=== PATIENT | male | born 1995 | race Caucasian/White ===

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

== ENCOUNTER 2017-02-08 18:21 | Emergency (ER) | payer BC ==
[2017-02-09] MEDS ORDERED: NS 0.9% 1000 ML* 2,000 ML IV ONE (00:25)
[2017-02-09] MEDS ORDERED: Metoclopramide IV* 5 MG/ML 2 ML VIAL IV SLOW PU ONE (00:27)
[2017-02-09 01:17] LABS: Hematocrit 43 % (42-52); Hemoglobin 14.8 g/dl (14.0-18.0); Mean Corpuscular HGB Conc 35 g/dl (31-36); Mean Corpuscular Hemoglobin 31 pg (27-31); Mean Corpuscular Volume 90 fL (80-94); Mean Platelet Volume 8 um3 (7.4-10.4); Red Cell Distribution Width 13 % (10.5-15); White Blood Count 11.4 10^3/ul (3.5-10.8)
[2017-02-09 01:31] LABS: Albumin 3.9 g/dL (3.2-5.2); BUN/Creatinine Ratio 9.7 (8-20); C Reactive Protein 2.52 mg/L (< 5.00); Calcium 9.4 mg/dL (8.6-10.3); EGFR African American 119.6 (>60); Globulin 2.9 g/dL (2-4); Potassium 3.8 mmol/L (3.5-5.0); Total Bilirubin 0.3 mg/dL (0.2-1.0); Total Protein 6.8 g/dL (6.4-8.9)
[2017-02-09] MEDS ORDERED: Iohexol 300* (CONTRAST) 10 ML SDV IV ONE (03:38)
[2017-02-09] MEDS ORDERED: LORazepam INJ* 2 MG/ML 1 ML VIAL IV ONE (04:11)
[2017-02-09 04:47] LABS: Urine Bilirubin Negative (Negative); Urine Glucose Negative (Negative); Urine Nitrite Negative (Negative)
[2017-02-09] MEDS ORDERED: HYDROcodone/ACETAMIN 5-325 MG* 1 TAB PO ONE (07:42)
--- NOTE | 2017-02-09 07:42 | ED ---
Eugene Gongora Rebecca, scribed for Tacos Mojica MD on 02/09/17 at 0010 . Back Pain - HPI Summary HPI Summary: Pt is a 21 y/o M who presents to ED c/o bilateral flank pain and dysuria. Sx began a few days ago, worsening gradually since yesterday. Pain is worse on the R than L. Currently, pain is moderate, ranked 9/10. Sx aggravated by movement, alleviated by nothing. Additionally c/o dark urine and suprapubic, penile and testicular pain (worse on the right) when he urinates. Notes that he has been experiencing epigastric pain and nausea after eating for the last 4 months. Is not taking any anti-emetics or antacids and is awaiting an endoscopy. Pt experienced a seizure while in a chair [employer] CHECK[employer] secondary to pain. Denies fever, chills. States that he typically has about 1 seizure every week, though at initial onset at age 16 he was having 3-4 every day. No PMHx kidney stones. PSHx appy. - History of Current Complaint Chief Complaint: EDFlankPain Stated Complaint: PAIN WHEN URINATING AND IN LOWER BACK Time Seen by Provider: 02/09/17 00:02 Hx Obtained From: Patient Onset/Duration: Lasting Days, Still Present, Worse Since - Yesterday Onset/Duration: Still Present Back Pain Location: Is Discrete @ - Bilateral flank pain Severity Currently: Severe Pain Intensity: 9 Pain Scale Used: 0-10 Numeric Aggravating Symptom(s): Movement Alleviating Symptom(s): Nothing Associated Signs And Symptoms: Positive: Abdominal Pain - Suprapubic (when urinating), Other - Penile and testicular pain. Negative: Fever - Allergies/Home Medications Allergies/Adverse Reactions: Allergies Allergy/AdvReac Type Severity Reaction Status Date / Time Albuterol Allergy Severe Airway Verified 12/31/16 09:23 Obstruction Latex Allergy Hives/Diff. Verified 12/31/16 09:23 Breathing/I tching BASAL Allergy Severe TONGUE Uncoded 12/31/16 09:23 SWELLING, TROUBLE BREATHING DOGS Allergy Severe ITCHY Uncoded 12/31/16 09:23 EYES, SNEEZING CHACHO Allergy Severe TONGUE Uncoded 12/31/16 09:23 SWELLING, DYSPNEA PEACHES Allergy Severe VOMITING, Uncoded 12/31/16 09:23 TONGUE SWELLING, DIFFICULTY BREATHING SALMON Allergy Severe TONGUE Uncoded 12/31/16 09:23 SWELLING WEEDS Allergy Severe DYSPNEA Uncoded 12/31/16 09:23 CATS Allergy ITCHY Uncoded 12/31/16 09:23 EYES, SNEEZING PMH/Surg Hx/FS Hx/Imm Hx Endocrine/Hematology History: Denies: Hx Anticoagulant Therapy, Hx Diabetes, Hx Thyroid Disease Cardiovascular History: Denies: Hx Congestive Heart Failure, Hx Deep Vein Thrombosis, Hx Hypertension , Hx Myocardial Infarction, Hx Pacemaker/ICD Respiratory History: Reports: Hx Asthma - EXERCISE INDUCED Denies: Hx Chronic Obstructive Pulmonary Disease (COPD), Hx Lung Cancer, Hx Pneumonia, Hx Pulmonary Embolism GI History: Reports: Other GI Disorders - appendectomy Denies: Hx Gall Bladder Disease, Hx Gastrointestinal Bleed, Hx Ulcer, Hx Urosepsis History: Denies: Hx Kidney Stones, Hx Renal Disease Musculoskeletal History: Reports: Other Musculoskeletal History - Hypermobility arthralgia Syndrome Sensory History: Reports: Other Sensory Impairments - 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 Opthamlomology History: Reports: Other Sensory Impairments - 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 Neurological History: 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, pseudoseizures Denies: Hx Dementia, Hx Migraine, Hx Transient Ischemic Attacks (TIA) Psychiatric History: Reports: Hx Anxiety, Hx Depression Denies: Hx Eating Disorder, Hx Schizophrenia, Hx Bipolar Disorder, Hx of Violent Episodes Against Others - Surgical History Surgery Procedure, Year, and Place: ORAL SURGERY, EYE SURGERY FOR NYSTAGMUS Infectious Disease History: No Infectious Disease History: Denies: Traveled Outside the [place] in Last 30 Days - Family History Known Family History: Positive: Cardiac Disease, Diabetes Negative: Renal Disease - Social History Alcohol Use: None Substance Use Type: Reports: Marijuana Substance Use Comment - Amount & Last Used: past hx of Oxycodone abuse- clean now Smoking Status (MU): Former Smoker Review of Systems Negative: Fever, Chills Positive: Abdominal Pain - suprapubic pain when urinating, Nausea - after eating - 4 months Positive: dysuria, pain - Bilateral flank (R>L); penile and testicular when urinating, other - dark urine All Other Systems Reviewed And Are Negative: Yes Physical Exam - Summary Physical Exam Summary: General: well-appearing, mild to moderate pain distress Skin: warm, color reflects adequate perfusion, dry Head: normal Eyes: EOMI, ROSALIE, saccades ENT: normal, oral mucosa moist Neck: supple, nontender Respiratory: CTA, breath sounds present Cardiovascular: RRR Abdomen: soft, diffusely tender with pain increasing when he moves his legs Bowel: present Musculoskeletal: strength/ROM intact, tender in the midline of the back and both flanks Neurological: normal, sensory/motor intact, A&O x3 Psychological: affect/mood appropriate Triage Information Reviewed: Yes Vital Signs On Initial Exam: Initial Vitals Temp Pulse Resp BP Pulse Ox 98.4 F 92 20 129/76 97 02/08/17 18:32 02/08/17 18:32 02/08/17 18:32 02/08/17 18:32 02/08/17 18:32 Vital Signs Reviewed: Yes - [place] Coma Scale Coma Scale Total: 15 Diagnostics - Vital Signs Vital Signs Temp Pulse Resp BP Pulse Ox 02/08/17 23:40 94 96 02/08/17 23:37 130/69 02/08/17 22:35 98.1 F 78 16 131/72 99 02/08/17 19:37 97.9 F 100 16 126/68 98 02/08/17 18:32 98.4 F 92 20 129/76 97 - Laboratory Lab Results: Lab Results 02/09/17 02/09/17 02/09/17 Range/Units 01:00 01:00 01:00 WBC 11.4 H (3.5-10.8) 10^3/ul RBC 4.80 (4.0-5.4) 10^6/ul Hgb 14.8 (14.0-18.0) g/dl Hct 43 (42-52) % MCV 90 (80-94) fL MCH 31 (27-31) pg MCHC 35 (31-36) g/dl RDW 13 (10.5-15) % Plt Count 229 (150-450) 10^3/ul MPV 8 (7.4-10.4) um3 Neut % (Auto) 51.8 (38-83) % Lymph % (Auto) 36.2 (25-47) % Bru[place] % (Auto) 8.9 (1-9) % Eos % (Auto) 2.7 (0-6) % Baso % (Auto) 0.4 (0-2) % Absolute Neuts (auto) 5.9 (1.5-7.7) 10^3/ul Absolute Lymphs (auto) 4.1 (1.0-4.8) 10^3/ul Absolute Monos (auto) 1.0 H (0-0.8) 10^3/ul Absolute Eos (auto) 0.3 (0-0.6) 10^3/ul Absolute Basos (auto) 0.1 (0-0.2) 10^3/ul Absolute Nucleated RBC 0.01 10^3/ul Nucleated RBC % 0.1 INR (Anticoag Therapy) 0.93 (0.89-1.11) APTT 29.5 (26.0-36.3) seconds Sodium 139 (133-145) mmol/L Potassium 3.8 (3.5-5.0) mmol/L Chloride 104 (101-111) mmol/L Carbon Dioxide 28 (22-32) mmol/L Anion Gap 7 (2-11) mmol/L BUN 10 (6-24) mg/dL Creatinine 1.03 (0.67-1.17) mg/dL Est GFR ( Amer) 119.6 (>60) Est GFR (Non-Af Amer) 93.0 (>60) BUN/Creatinine Ratio 9.7 (8-20) Glucose 93 (70-100) mg/dL Lactic Acid (0.5-2.0) mmol/L Calcium 9.4 (8.6-10.3) mg/dL Total Bilirubin 0.30 (0.2-1.0) mg/dL AST 24 (13-39) U/L ALT 30 (7-52) U/L Alkaline Phosphatase 88 (34-104) U/L C-Reactive Protein 2.52 (< 5.00) mg/L Total Protein 6.8 (6.4-8.9) g/dL Albumin 3.9 (3.2-5.2) g/dL Globulin 2.9 (2-4) g/dL Albumin/Globulin Ratio 1.3 (1-3) Urine Color Urine Appearance Urine pH (5-9) Ur Specific [place] (1.010-1.030) Urine Protein (Negative) Urine Ketones (Negative) Urine Blood (Negative) Urine Nitrate (Negative) Urine Bilirubin (Negative) Urine Urobilinogen (Negative) Ur Leukocyte Esterase (Negative) Urine Glucose (Negative) 02/09/17 02/09/17 Range/Units 01:00 04:10 WBC (3.5-10.8) 10^3/ul RBC (4.0-5.4) 10^6/ul Hgb (14.0-18.0) g/dl Hct (42-52) % MCV (80-94) fL MCH (27-31) pg MCHC (31-36) g/dl RDW (10.5-15) % Plt Count (150-450) 10^3/ul MPV (7.4-10.4) um3 Neut % (Auto) (38-83) % Lymph % (Auto) (25-47) % Bru[place] % (Auto) (1-9) % Eos % (Auto) (0-6) % Baso % (Auto) (0-2) % Absolute Neuts (auto) (1.5-7.7) 10^3/ul Absolute Lymphs (auto) (1.0-4.8) 10^3/ul Absolute Monos (auto) (0-0.8) 10^3/ul Absolute Eos (auto) (0-0.6) 10^3/ul Absolute Basos (auto) (0-0.2) 10^3/ul Absolute Nucleated RBC 10^3/ul Nucleated RBC % INR (Anticoag Therapy) (0.89-1.11) APTT (26.0-36.3) seconds Sodium (133-145) mmol/L Potassium (3.5-5.0) mmol/L Chloride (101-111) mmol/L Carbon Dioxide (22-32) mmol/L Anion Gap (2-11) mmol/L BUN (6-24) mg/dL Creatinine (0.67-1.17) mg/dL Est GFR ( Amer) (>60) Est GFR (Non-Af Amer) (>60) BUN/Creatinine Ratio (8-20) Glucose (70-100) mg/dL Lactic Acid 1.5 (0.5-2.0) mmol/L Calcium (8.6-10.3) mg/dL Total Bilirubin (0.2-1.0) mg/dL AST (13-39) U/L ALT (7-52) U/L Alkaline Phosphatase (34-104) U/L C-Reactive Protein (< 5.00) mg/L Total Protein (6.4-8.9) g/dL Albumin (3.2-5.2) g/dL Globulin (2-4) g/dL Albumin/Globulin Ratio (1-3) Urine Color Straw Urine Appearance Clear Urine pH 6.0 (5-9) Ur Specific [place] 1.008 L (1.010-1.030) Urine Protein Negative (Negative) Urine Ketones Negative (Negative) Urine Blood Negative (Negative) Urine Nitrate Negative (Negative) Urine Bilirubin Negative (Negative) Urine Urobilinogen Negative (Negative) Ur Leukocyte Esterase Negative (Negative) Urine Glucose Negative (Negative) Result Diagrams: 02/09/17 01:00 02/09/17 01:00 Lab Statement: Any lab studies that have been ordered have been reviewed, and results considered in the medical decision making process. - CT CT Abd/Pel CT Interpretation Completed By: Radiologist - Pending radiology interpretation. See [email or web address] for results. CT L-spine CT Interpretation: No Acute Changes - No acute fracture or malalignment. Small posterior disc bulges L4-L5 and L5-S1. MO substantial canal or neural foraminal stenosis. ED physician reviewed radiology report and agrees. CT Interpretation Completed By: Radiologist Back Pain Course/Dx - Course Assessment/Plan: Patient medications reviewed. BP noted and advised to f/u with PCP. DISCUSSED RESULTS WITH PATIENT/PARENTS. MOST PROBABLE SOURCE OF PAIN IS THE LOW BACK. PATIENT ALSO HAS HAD EPIGASTRIC PAIN; WILL RX OMEPRAZOLE. F/U PMD. DISCUSSED REEVAL FOR ANY WORSENING OF CONDITION. NO CRITICAL CARE TIME. - Diagnoses Provider Diagnoses: Back pain, Flank pain, Abdominal pain Discharge - Discharge Plan Condition: Stable Disposition: HOME Prescriptions: HYDROcodone/ACETAMIN 5-325 MG* [[place] 5-325 TAB*] 1 tab PO Q4H PRN #20 tab MDD 6 PRN Reason: Pain Omeprazole CAP* [Prilosec CAP* 20 MG] 20 mg PO BID #30 cap. Patient Education Materials: Abdominal Pain (ED), Back Pain (ED), Flank Pain ( ED) Referrals: Percy Londono MD [Primary Care Provider] - Additional Instructions: FOLLOW UP WITH YOUR DOCTOR. RETURN TO THE EMERGENCY DEPARTMENT FOR ANY WORSENING OF YOUR CONDITION; PAIN, WEAKNESS, FEVER, YOU FEEL ILL OR QUESTIONS OR CONCERNS. The documentation as recorded by the Eugene luna Rebecca accurately reflects the service I personally performed and the decisions made by me, Tacos Mojica MD.
--- NOTE | 2017-02-09 07:55 | RAD ---
INDICATION: Low back pain, bilateral flank pain and diffuse abdominal pain. COMPARISON: Comparison is made with a prior CT of the abdomen and pelvis from January 12, 2016. TECHNIQUE: A CT scan of the abdomen and pelvis was performed with intravenous and oral contrast following intravenous injection of 100 ml of Omnipaque 300 nonionic contrast. Contiguous axial sections were obtained from the lung bases through the symphysis pubis. Images were reconstructed in the coronal and sagittal planes. FINDINGS: The lung bases are clear. No pleural effusion is present. The liver and spleen are within normal limits in size without significant focal abnormality. No calcified gallstones are seen. The pancreas appears to be within normal limits in size. The kidneys and adrenal glands are normal in size. No hydronephrosis is seen. No significant focal renal abnormality is seen. The aorta is normal in caliber and demonstrates homogeneous contrast opacification. No significant enlarged retroperitoneal lymph nodes are seen. The stomach, small and large bowel appear nondistended. Postsurgical changes are noted adjacent to the cecum. The appendix is not visualized. There is no evidence for diverticulitis or colitis. There is a small periumbilical hernia containing fat. No free intraperitoneal air or fluid is seen. There is a mild lumbar scoliosis. There is a sclerotic lesion in the proximal right femur which is unchanged from the prior study most consistent with a benign bone island. No other focal osseous abnormalities are seen. IMPRESSION: NO EVIDENCE FOR ACUTE FINDING OR CAUSE FOR THE PATIENT'S ABDOMINAL PAIN IS SEEN.
--- NOTE | 2017-02-09 07:56 | RAD ---
HISTORY: Bilateral flank pain, painful urination COMPARISONS: None TECHNIQUE: Multiple contiguous axial CT scans were obtained of the lumbar spine with intravenous contrast, with coronal and sagittal multiplanar reformations. FINDINGS: SPINAL CANAL: Evaluation of the central canal is limited on CT technique; however, there is no obvious canalicular mass or epidural hemorrhage. ALIGNMENT: The alignment is normal. VERTEBRAL BODIES: The vertebral bodies are preserved in height. The bones are normal in attenuation. JOINTS: There is no subluxation or dislocation MUSCULATURE: Normal INTERVERTEBRAL DISCS: The intervertebral disc spaces are normal in height. AXIAL IMAGES: T12-L1: There is no osseous neural foraminal narrowing or central canal stenosis. L1-L2: There is no osseous neural foraminal narrowing or central canal stenosis. L2-L3: There is no osseous neural foraminal narrowing or central canal stenosis. L3-L4: There is no osseous neural foraminal narrowing or central canal stenosis. L4-L5: There is minimal disc bulging. There is no osseous neural foraminal narrowing or central canal stenosis. L5-S1: There is minimal disc bulging. There is no osseous neural foraminal narrowing or central canal stenosis. SOFT TISSUES: The visualized soft tissues of the abdomen are unremarkable. OTHER: There is no abnormal enhancement. IMPRESSION: NO OSSEOUS NEURAL FORAMINAL NARROWING OR CENTRAL CANAL STENOSIS.
[2017-02-09 07:57] VITALS: BP 114/70
== END 2017-02-09 07:56 | disposition home or self-care (01) ==
LOC: ED 18:21
DX: R10.84 Generalized abdominal pain (principal); M54.9 Dorsalgia, unspecified; R11.0 Nausea; R30.0 Dysuria
CPT/HCPCS: 36415; 72131; 74177; 80053; 81003; 83605; 85025; 85610; 85730; 86140; 96374; 96375; 99283; J2060; J2765; Q9967

== ENCOUNTER 2017-05-20 14:26 | Emergency (ER) | payer MEDICAID ==
[2017-05-20] MEDS ORDERED: Ondansetron INJ* 2 MG/ML VIAL IV ONE (14:47)
[2017-05-20] MEDS ORDERED: LORazepam INJ* 2 MG/ML 1 ML VIAL IV PUSH ONE (14:47)
[2017-05-20] MEDS: NS 0.9% 1000 ML* 2,000 ML IV ONE (15:06)
[2017-05-20 15:26] LABS: ABS Basophils 0.1 10^3/ul (0-0.2); ABS Eosinophils 0 10^3/ul (0-0.6); ABS Lymphocytes 2.8 10^3/ul (1.0-4.8); ABS Monocytes 0.6 10^3/ul (0-0.8); ABS Neutrophils 8.1 10^3/ul (1.5-7.7); ABS Nucleated RBC 0 10^3/ul; Eosinophil % 0.4 % (0-6); Hematocrit 49 % (42-52); Hemoglobin 17.1 g/dl (14.0-18.0); Lymphocyte % 24.1 % (25-47); Mean Corpuscular HGB Conc 35 g/dl (31-36); Mean Corpuscular Hemoglobin 31 pg (27-31); Mean Corpuscular Volume 88 fL (80-94); Mean Platelet Volume 9 um3 (7.4-10.4); Nucleated Red Blood Cells % 0; Platelet Count 304 10^3/ul (150-450); Red Blood Count 5.54 10^6/ul (4.0-5.4); Red Cell Distribution Width 13 % (10.5-15); White Blood Count 11.8 10^3/ul (3.5-10.8)
--- OUTSIDE RECORDS SUMMARY | 2017-05-20 15:27 | XMS REPORT ---
:1995 External Reference #:[id number] Author Organization [facility] Address [address] [place] [address] Phone [phone] Care Team Providers Name Role Phone Percy Londono MD Primary Care Physician Unavailable Payers Type Date Identification Numbers Payment Provider Subscriber Medicaid Policy Number: [id number] Medicaid Gustavo Chavez Group Name: 1 1 [address] PayID: [id number] [place] [address] Medigap Part B Expires: 2016 Policy Number: [id number] [employer] Waqar Sequeira PayID: [id number] [address] [address] [place] [address] Problems Date Description Provider Status Onset: 12/16/2014 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 Onset: 12/16/2014 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/2015 Dissociative convulsions Parisa Gonzalez MD Active Onset: 12/16/2015 Hypermobility syndrome Parisa Gonzalez MD Active Onset: 03/28/2017 Erythromelalgia Parsia Gonzalez MD Active Family History Date Family Member(s) Problem(s) Comments Father [place] 2011 Mother Rheumatoid Arthritis Mother Add Siblings 2 Social History Type Date Description Comments ETOH Use Denies alcohol use Smoking Patient is a former smoker quit March 2016 Exercise Type/Frequency Exercises regularly Allergies, Adverse Reactions, Alerts Date Description Reaction Status Severity Comments 12/16/2014 Albuterol active 02/20/2017 Olanzapine decreased b/p active Moderate 03/13/2017 Ondansetron active nystigmas Medications Medication Date Status Form Strength Qnty SIG Indications Ordering Provider Flector 04/24/ Active Patches 1.3% 30uni apply 1 2016 ts patch up Sherrie, to twice M.D. dailiy as needed for pain Nitro-bid 04/24/ Active Ointment 2% 30uni apply 2016 ts small Sherrie, amount to M.D. webs of digits as needed for attack of raynaud's Venlafaxine HCL 03/28/ Active Caps ER 75mg 30cap 1 by I73.81 Parisa ER 2016 24HR s mouth MD Lisa every day Vitamin D 02/20/ Active Capsules [id number] 14cap take one Stephen (Ergocalciferol) 2016 s capsule Sherrie, by mouth M.D. once weekly Hydroxyzine HCL / Active Tablets 50mg 4 times a Unknown 0000 day as needed Melatonin / Active Capsules 3mg 1 by Unknown 0000 mouth every night at bedtime Xopenex HFA / Active Aerosol 45mcg/Act inhale 2 Unknown 0000 puffs four times a day if needed Diphenhydramine / Active Capsules 25mg as needed Unknown HCL 0000 Omeprazole / Active Capsules 20mg [address] mouth every day Mirapex 02/20/ Hx Tablets 0.125mg 30tab take one G25.81 Stephen 2016 - s or two Sherrie, 02/20/ tablet by M.DPierre 2017 mouth at bedtime as needed for restless legs Mirapex 02/20/ Hx Tablets 0.125mg 30tab take one G25.81 Stephen 2016 - s or two Sherrie, 03/27/ tablet by M.D. 2017 mouth at bedtime as needed for restless legs Vitamin D3 02/13/ Hx Capsules 5000Unit 90cap take one Stephen Maximum Strength 2016 - s capsule/t Sherrie, 02/20/ ablet M.DPierre 2017 daily by mouth Cymbalta / Hx Caps DR 60mg 2 by Unknown 0000 - Part mouth 01/17/ every day 2016 Meloxicam / Hx Tablets 15mg once Unknown 0000 - daily 01/17/ with food 2016 Vitamin D / Hx Tablets 1000Units one by Unknown (Cholecalciferol) 0000 - mouth every day 2016 Amitriptyline HCL / Hx Tablets 25mg 1 by Unknown 0000 - mouth 2016 night at bedtime Gabapentin / Hx Capsules 100mg 1 by Unknown 0000 - mouth three 2017 times a day Olanzapine / Hx Tablets 5mg take 1 Unknown 0000 - tablets 02/19/ at 2016 bedtime Ondansetron / Hx Tablets 4mg Dissolve Unknown 0000 - Dispers One Tablet On 2016 The Tongue Every 6 Hours as Needed For Nausea Hydrocodone-Aceta / Hx Tablets 5-325mg 1 tab by Unknown minophen 0000 - mouth - 2016 6 hours as needed pain Latuda / Hx Tablets 20mg 1 by Unknown 0000 - mouth 2017 Vital Signs Date Vital Result Comment 05/16/2017 Height 68 inches 5'8" 5'8 Heart Rate 72 /min BP Systolic 118 mmHg BP Diastolic 82 mmHg Height Percentile 28 % 04/24/2017 Height 68 inches 5'8" 5'8 Weight 172.00 lb Heart Rate 91 /min BP Systolic Sitting 129 mmHg BP Diastolic Sitting 88 mmHg Respiratory Rate 14 /min Pain Level 7 BMI (Body Mass Index) 26.1 kg/m2 Height Percentile 29 % Weight Percentile 74th 03/28/2017 Height 68 inches 5'8 Weight 163.38 lb Heart Rate 72 /min BP Systolic 102 mmHg BP Diastolic 64 mmHg BMI (Body Mass Index) 24.8 kg/m2 Height Percentile 29 % Weight Percentile 63rd 03/13/2017 Height 68 inches 5'8" Heart Rate 96 /min BP Systolic Sitting 126 mmHg BP Diastolic Sitting 75 mmHg Respiratory Rate 14 /min Pain Level 9 Height Percentile 29 % 02/20/2017 Height 68 inches 5'8" Weight 178.00 lb with shoes Heart Rate 78 /min BP Systolic 114 mmHg BP Diastolic 58 mmHg O2 % BldC Oximetry 97 % BMI (Body Mass Index) 27.1 kg/m2 Height Percentile 29 % Weight Percentile 80th 01/17/2017 Height 68 inches 5'8" Weight 173.00 lb Heart Rate 88 /min BP Systolic Sitting 118 mmHg BP Diastolic Sitting 80 mmHg Respiratory Rate 16 /min O2 % BldC Oximetry 95 % BMI (Body Mass Index) 26.3 kg/m2 Height Percentile 3 % Weight Percentile <3rd 12/16/2015 Height 67 inches 5'7" Weight 150.00 lb Heart Rate 75 /min BP Systolic Sitting 104 mmHg BP Diastolic Sitting 68 mmHg Respiratory Rate 16 /min O2 % BldC Oximetry 98 % BMI (Body Mass Index) 23.5 kg/m2 Blood Pressure Percentile 0 % Height Percentile 20 % Weight Percentile 51st 03/17/2015 Height 67 inches 5'7" Weight 145.00 lb Heart Rate 76 /min BP Systolic Sitting 112 mmHg BP Diastolic Sitting 66 mmHg Respiratory Rate 16 /min BMI (Body Mass Index) 22.7 kg/m2 Blood Pressure Percentile 0 % Height Percentile 22 % Weight Percentile 49th 01/27/2015 Height 67 inches 5'7" Weight 149.00 lb Heart Rate 76 /min BP Systolic Sitting 136 mmHg BP Diastolic Sitting 72 mmHg Respiratory Rate 18 /min BMI (Body Mass Index) 23.3 kg/m2 Blood Pressure Percentile 0 % Height Percentile 22 % Weight Percentile 56th 12/16/2014 Height 67 inches 5'7" Weight 145.00 lb Heart Rate 68 /min BP Systolic Sitting 114 mmHg BP Diastolic Sitting 66 mmHg Respiratory Rate 18 /min BMI (Body Mass Index) 22.7 kg/m2 Blood Pressure Percentile 0 % Height Percentile 23 % Weight Percentile 51st Results Test Date Test Result H/L Range Note Connective Tissue Panel 04/24/2017 Anti-Nuclear Antibody 0.8 U 1, 2 Cyclic Citrullinated Peptide <15.6 U 1, 3 Interpretation See Comment 1, 4 Laboratory test finding 04/24/2017 C Reactive Protein 3.86 mg/L < 5.00 1, 5 Creatine Kinase(CK) 90 U/L 10-223 1, 6 Erythrocyte Sed Rate 15 mm/Hr High 0-14 1, 7 Laboratory test finding 03/15/2017 Hemoglobin A1c (Glyco HGB) 5.2 % 4.0- 5.6 8 Laboratory test finding 01/17/2017 C Reactive Protein 2.46 mg/L < 5.00 9 Creatine Kinase(CK) 80 U/L 10-223 Free Cortisol Serum 0.12 g/dL 10 Copper, Serum 0.93 g/mL 0.75-1.45 11 Hla B27 01/17/2017 Hla B27 Negative 12 Hla B27 Interp See Comment 13 Laboratory test finding 01/17/2017 Direct Jefry NEGATIVE Anti Nuclear Antibody 0.9 U 14 Nuclear AB (Bridget) By Ifa Igg <1:80 (Negative) 15 Abo/RH Type 01/17/2017 Patient Blood Type O Positive Laboratory test finding 01/17/2017 Ferritin 36.3 ng/mL 24-336 Cardiolipin Igg/Igm 01/17/2017 Phospholipid Ab IgM, S < 9.4 MPL 16 Phospholipid Ab IgG < 9.4 GPL 17 Laboratory test finding 01/17/2017 Rheumatoid Factor <15 IU/mL <15 18 Cyclic Citrullinated Pep Igg <15.6 U 19 Lyme Disease Serology Negative Negative 20 Anca AB Ser If 01/17/2017 C-Anca Negative Negative P-Anca Negative Negative 21 Laboratory test finding 01/17/2017 Angiotensin Converting 67 U/L 8 - 53 22 Enzyme Vitamin D 1,25 And 01/17/2017 Vitamin D Total 25(Oh) 20.8 ng/mL Low 30-50 Vitamin D,2 Vitamin D, 1,25 Dihydroxy 51 pg/mL 18-64 23 Vitamin B12 And Folate Serum 01/17/2017 Vitamin B12 420 pg/mL 180-914 24 Folic Acid (Folate) 15.16 ng/mL >3.99 Laboratory test finding 01/17/2017 Homocysteine 9 mcmol/L 25 Comp Metabolic Panel 01/17/2017 Sodium 138 mmol/L 133-145 Potassium 3.6 mmol/L 3.5-5.0 Chloride 102 mmol/L 101-111 Co2 Carbon Dioxide 28 mmol/L 22-32 Anion Gap 8 mmol/L 2-11 Glucose 117 mg/dL High 70-100 Blood Urea Nitrogen 10 mg/dL 6-24 Creatinine 1.04 mg/dL 0.67-1.17 BUN/Creatinine Ratio 9.6 8-20 Calcium 9.9 mg/dL 8.6-10.3 Total Protein 7.2 g/dL 6.4-8.9 Albumin 4.5 g/dL 3.2-5.2 Globulin 2.7 g/dL 2-4 Albumin/Globulin Ratio 1.7 1-3 Total Bilirubin 0.50 mg/dL 0.2-1.0 Alkaline Phosphatase 82 U/L 34-104 Alt 21 U/L 7-52 Ast 20 U/L 13-39 Egfr Non- 92.0 >60 Egfr 118.3 >60 26 Laboratory test finding 01/17/2017 Complement C3 125 mg/dL 75 - 175 27 Complement C4 18 mg/dL 14 - 40 28 Ezra Igg AB Reflex 01/17/2017 SS-A/Ro Antibody <0.2 U 29 SS-B/La Antibody <0.2 U 30 Sm (Avery) IgG Antibody <0.2 U 31 U1-nRNP Antibody <0.2 U 32 Scl-70 (Scleroderma) Antibody <0.2 U 33 Leidy-1 Antibody <0.2 U 34 Laboratory test finding 01/17/2017 Magnesium 2.1 mg/dL 1.9-2.7 Erythrocyte Sed Rate 6 mm/Hr 0-14 Celiac Hla 01/17/2017 Hla-Dqa1 SEE BELOW 35 Hla-DQB1 SEE BELOW 36 Celiac Gene Pairs Present? Yes Celiac Gene Interpretation See Comment 37 Celiac Panel 01/17/2017 Tissue Transglutaminase IgA Ab <1.2 U/mL 38 Immunoglobulin A 148 mg/dL 61 - 356 Celiac Interpretation See Comment 39 1 Please check today 2 REFERENCE VALUE <=1.0 (Negative) 3 REFERENCE VALUE <20.0 (Negative) 4 Tests for antibodies to dsDNA and EZRA antigens are not performed automatically unless the BRIDGET result is > or= 3.0 U. Studies performed at [facility] indicate that positive BRIDGET results <3.0 U are rarely accompanied by positive second order tests. Test Performed by: [facility] - [address] [address] 5 Acute inflammation: >10.00 6 Please check today 7 Please check today 8 Therapeutic target for the treatment of diabetes mellitus patients is <7% HBA1C, and in selective patients <6.0%. Please refer to [place] [employer] diabetic care guidelines for further information. 9 Acute inflammation: >10.00 10 Adult Reference Ranges for Cortisol, Free, LC/MS/MS: 8:00 - 10:00 AM 0.07-0.93 mcg/dL 4:00 - 6:00 PM 0.04-0.45 mcg/dL 10:00 - 11:00 PM 0.04-0.35 mcg/dL This test was developed and its analytical performance characteristics have been determined by [employer] [facility]. It has not been cleared or approved by FDA. This assay has been validated pursuant to the CLIA regulations and is used for clinical purposes. Test Performed by: [employer] [facility] [address] [place] [address] 11 ADDITIONAL INFORMATION This test was developed and its performance characteristics determined by [facility] in a manner consistent with CLIA requirements. This test has not been cleared or approved by the U.S. Food and Drug Administration. Test Performed by: [place] [address] 12 REFERENCE VALUE Not Applicable 13 RESULT: HLA-B27 antigen was not detected. ADDITIONAL INFORMATION Method: Flow Cytometry Performing Laboratory CLIA# [id number] Test Performed by: [address] [address] 14 REFERENCE VALUE <=1.0 (Negative) Test Performed by: [address] [address] 15 <1:80 (Negative) REFERENCE VALUE <1:80 (Negative) Test Performed by: [facility] [place] [address] 16 REFERENCE VALUE <15.0 (Negative) 17 REFERENCE VALUE <15.0 (Negative) Test Performed by: [facility] [place] [address] 18 Test Performed by: [facility] [place] [address] 19 REFERENCE VALUE <20.0 (Negative) Test Performed by: [place] [address] 20 Serologic response to B. burgdorferi infection is not detected, but cannot rule out early infection during which low or undetectable antibody levels to B. burgdorferi may be present. If clinically indicated, a new serum specimen should be submitted in 7-14 days. Test Performed by: [facility] [place] [address] 21 Negative for cANCA and pANCA patterns by immunofluorescence. ADDITIONAL INFORMATION This test was developed and its performance characteristics determined by [facility] in a manner consistent with CLIA requirements. This test has not been cleared or approved by the U.S. Food and Drug Administration. Test Performed by: [facility] [place] [address] 22 Test Performed by: [facility] [place] [address] 23 ADDITIONAL INFORMATION This test was developed and its performance characteristics determined by [facility] in a manner consistent with CLIA requirements. This test has not been cleared or approved by the U.S. Food and Drug Administration. Test Performed by: [facility] - [address] [address] 24 Normal Range 180 to 914 Indeterminate Range 145 to 180 Deficient Range <145 25 REFERENCE VALUE <=13 (Fasting) ADDITIONAL INFORMATION This test was developed and its performance characteristics determined by [facility] in a manner consistent with CLIA requirements. This test has not been cleared or approved by the U.S. Food and Drug Administration. Test Performed by: [address] [address] 26 Because ethnic data is not always readily available, this report includes an eGFR for both -Americans and non- Americans. The National Kidney Disease Education Program (NKDEP) does not endorse the use of the MDRD equation for patients that are not between the ages of 18 and 70, are , have extremes of body size, muscle mass, or nutritional status, or are non- or non-. According to the National Kidney Foundation, irrespective of diagnosis, the stage of the disease is based on the level of kidney function: Stage Description GFR(mL/min/1.73 m(2)) 1 Kidney damage with normal or decreased GFR 90 2 Kidney damage with mild decrease in GFR 60-89 3 Moderate decrease in GFR 30-59 4 Severe decrease in GFR 15-29 5 Kidney failure <15 (or dialysis) 27 Test Performed by: [address] [address] 28 Test Performed by: [address] [place] [address] 29 REFERENCE VALUE <1.0 (Negative) 30 REFERENCE VALUE <1.0 (Negative) 31 REFERENCE VALUE <1.0 (Negative) 32 REFERENCE VALUE <1.0 (Negative) 33 REFERENCE VALUE <1.0 (Negative) 34 REFERENCE VALUE <1.0 (Negative) Test Performed by: [facility] - [address] [address] 35 RESULT: 01:,05:01 REFERENCE VALUE Not Applicable 36 RESULT: 02:01,06:02 DQ Serologic Equivalent: 2,6 REFERENCE VALUE Not Applicable 37 These genes are permissive for celiac disease. The absence of HLA celiac permissive genes would make the presence of celiac disease unlikely. However, these genes can also be present in the normal population. ADDITIONAL INFORMATION Method: Molecular typing of HLA antigens performed using reverse SSOP and/or SSP methods, reported as serological equivalents and low to medium resolution molecular values. Performing Laboratory CLIA# [id number] Test Performed by: [address] [address] 38 REFERENCE VALUE <4.0 (Negative) Test Performed by: [place] [address] 39 Negative serology. Celiac disease unlikely. However, approximately 10% of patients with celiac disease are seronegative. Also, patients who are already adhering to a gluten-free diet may be seronegative. If celiac disease is highly clinically suspected, consider HLA-DQ typing. Test Performed by: [place] [id number] Procedures Description No Information Encounters Type Date Location Provider CPT E/M Dx Office Visit 04/24/2017 [facility] Stephen Balderas M.D. 89472 I73.81 11:40a Of [place] I73.00 R79.82 M79.673 Office Visit 03/28/2017 3:30p [facility] [address] I73.81 F44.5 Office Visit 03/13/2017 4:20p [facility] Stephen Balderas [address] M54.5 [place] Arana R76.0 G25.81 R79.82 Office Visit 02/20/2017 4:00p [facility] Stephen Balderas [address]155 M54.5 [place] Arana R76.0 G25.81 R73.9 Office Visit 01/17/2017 2:00p [facility] Stephen Balderas [address]351 R79.82 Of [place] Arana H55.01 M35.7 G89.29 L30.9 Office Visit 12/16/2015 10:30a [facility] [place] [address] F44.5 Of [facility] [address] M35.7 Office Visit 03/17/2015 2:00p [facility] [place] [address] F44.5 Of [employer] H55.01 Office Visit 01/27/2015 4:00p [facility] [address] F44.5 Of [facility] [address] H55.01 Office Visit 12/16/2014 9:30a [facility] [place] [address] 306.7 Of [facility] [address] 379.51 Plan of Care Future Appointment(s):06/07/2017 1:40 pm - Stephen Balderas M.D. at [facility] [address]07/11/2017 4:00 pm - Parisa Gonzalez MD at [facility] [id number]/16/2017 - Parisa Gonzalez MDF44.5 Conversion disorder with seizures or convulsionsFollow up::Recommendations:we will get EEG today and try to capture one of these spells. If this does not answer the question,we will get a 24 hour EEG
--- OUTSIDE RECORDS SUMMARY | 2017-05-20 15:27 | XMS REPORT ---
:1995 External Reference #:[id number] Author Organization [facility] Address [address] [facility] [address] [place] [address] Phone [phone] Care Team Providers Name Role Phone Percy Londono MD Primary Care Physician Unavailable Payers Type Date Identification Numbers Payment Provider Subscriber Medicaid Policy Number: [id number] Medicaid Gustavo Chavez Group Name: 1 1 [address] PayID: [id number] [place] [address] Medigap Part B Expires: 2016 Policy Number: [id number] [employer]ets Waqar Sequeira PayID: [id number] [address] [address] [place] [address] Problems Date Description Provider Status Onset: 12/16/2014 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 once weekly Hydroxyzine HCL / Active Tablets 50mg 4 times a Unknown 0000 day as needed Melatonin / Active Capsules 3mg 1 by Unknown 0000 mouth every night at bedtime Xopenex HFA / Active Aerosol 45mcg/Act inhale 2 Unknown 0000 puffs four times a day if needed Latuda / Active Tablets 20mg 1 by Unknown 0000 mouth every day Diphenhydramine / Active Capsules 25mg as needed [...] Tablets 15mg once Unknown 0000 - daily 09/12/ with food 2016 Vitamin D / Hx Tablets 1000Units one by Unknown (Cholecalciferol) 0000 - mouth every day 2016 Amitriptyline HCL / Hx Tablets 25mg 1 by Unknown 0000 - mouth 2016 night at bedtime Gabapentin / Hx Capsules 100mg 1 by Unknown 0000 - mouth 01/17/ three 2017 times a day Olanzapine / Hx Tablets 5mg take 1 Unknown 0000 - tablets at 2016 bedtime Ondansetron / Hx Tablets 4mg Dissolve Unknown 0000 - Dispers One Tablet On 2016 The Tongue Every 6 Hours as Needed For Nausea Hydrocodone-Aceta / Hx Tablets 5-325mg 1 tab by Unknown minophen 0000 - mouth every - 2016 6 hours as needed pain Vital Signs Date Vital Result Comment 04/24/2017 Height 68 inches 5'8" 5'8 Weight [...] Test Date Test Result H/L Range Note Laboratory test finding 03/15/2017 Hemoglobin A1c (Glyco 5.2 % 4.0-5.6 1 HGB) Laboratory test finding 01/17/2017 C Reactive Protein 2.46 mg/L < 5.00 2 Creatine Kinase(CK) 80 U/L 10-223 Free Cortisol Serum 0.12 g/dL 3 Copper, Serum 0.93 g/mL 0.75-1.45 4 Hla B27 01/17/2017 Hla B27 Negative 5 Hla B27 Interp See Comment 6 Laboratory test finding 01/17/2017 Direct Jefry NEGATIVE Anti Nuclear Antibody 0.9 U 7 Nuclear AB (Bridget) By Ifa Igg <1:80 (Negative) 8 Abo/RH Type 01/17/2017 Patient Blood Type O Positive Laboratory test finding 01/17/2017 Ferritin 36.3 ng/mL 24-336 Cardiolipin Igg/Igm 01/17/2017 Phospholipid Ab IgM, S < 9.4 MPL 9 Phospholipid Ab IgG < 9.4 GPL 10 Laboratory test finding 01/17/2017 Rheumatoid Factor <15 IU/mL <15 11 Cyclic Citrullinated Pep Igg <15.6 U 12 Lyme Disease Serology Negative Negative 13 Anca AB Ser If 01/17/2017 C-Anca Negative Negative P-Anca Negative Negative 14 Laboratory test finding 01/17/2017 Angiotensin Converting 67 U/L 8 - 53 15 Enzyme Vitamin D 1,25 And 01/17/2017 Vitamin D Total 25(Oh) 20.8 ng/mL Low 30-50 Vitamin D,2 Vitamin D, 1,25 Dihydroxy 51 pg/mL 18-64 16 Vitamin B12 And Folate Serum 01/17/2017 Vitamin B12 420 pg/mL 180-914 17 Folic Acid (Folate) 15.16 ng/mL >3.99 Laboratory test finding 01/17/2017 Homocysteine 9 mcmol/L 18 Comp Metabolic Panel 01/17/2017 Sodium 138 mmol/L [...] Egfr Non- 92.0 >60 Egfr 118.3 >60 19 Laboratory test finding 01/17/2017 Complement C3 125 mg/dL 75 - 175 20 Complement C4 18 mg/dL 14 - 40 21 Claudine Igg AB Reflex 01/17/2017 SS-A/Ro Antibody <0.2 U 22 SS-B/La Antibody <0.2 U 23 Sm (Avery) IgG Antibody <0.2 U 24 U1-nRNP Antibody <0.2 U 25 Scl-70 (Scleroderma) Antibody <0.2 U 26 Leidy-1 Antibody <0.2 U 27 Laboratory test finding 01/17/2017 Magnesium 2.1 mg/dL 1.9-2.7 Erythrocyte Sed Rate 6 mm/Hr 0-14 Celiac Hla 01/17/2017 Hla-Dqa1 SEE BELOW 28 Hla-DQB1 SEE BELOW 29 Celiac Gene Pairs Present? Yes Celiac Gene Interpretation See Comment 30 Celiac Panel 01/17/2017 Tissue Transglutaminase IgA Ab <1.2 U/mL 31 Immunoglobulin A 148 mg/dL 61 - 356 Celiac Interpretation See Comment 32 1 Therapeutic target for the treatment of diabetes mellitus patients is <7% HBA1C, and in selective patients <6.0%. Please refer to [place] [employer] diabetic care guidelines for further information. 2 Acute inflammation: >10.00 3 Adult Reference Ranges for Cortisol, Free, LC/MS/MS: 8:00 - 10:00 AM 0.07-0.93 mcg/dL 4:00 - 6:00 PM 0.04-0.45 mcg/dL 10:00 - 11:00 PM 0.04-0.35 mcg/dL This test was developed and its analytical performance characteristics have been determined by [facility]. It has not been cleared or approved by FDA. This assay has been validated pursuant to the CLIA regulations and is used for clinical purposes. Test Performed by: [facility] [id number] [place] [phone] ADDITIONAL INFORMATION This test was developed and its performance characteristics determined by [facility] in a manner consistent with CLIA requirements. This test has not been cleared or approved by the U.S. Food and Drug Administration. Test Performed by: [facility] - [address] [address] 5 REFERENCE VALUE Not Applicable 6 RESULT: HLA-B27 antigen was not detected. ADDITIONAL INFORMATION Method: Flow Cytometry Performing Laboratory [facility]# [id number] Test Performed by: [address] [address] 7 REFERENCE VALUE <=1.0 (Negative) Test Performed by: [address] [address] <1:80 (Negative) REFERENCE VALUE <1:80 (Negative) Test Performed by: [address] [address] 9 REFERENCE VALUE <15.0 (Negative) 10 REFERENCE VALUE <15.0 (Negative) Test Performed by: [address] [address] Test Performed by: [address] [address] REFERENCE VALUE <20.0 (Negative) Test Performed by: [address] [address] 13 Serologic response to B. burgdorferi infection is not detected, but cannot rule out early infection during which low or undetectable antibody levels to B. burgdorferi may be present. If clinically indicated, a new serum specimen should be submitted in 7-14 days. Test Performed by: [address], [place] [address] 14 Negative for cANCA and pANCA patterns by immunofluorescence. ADDITIONAL INFORMATION This test was developed and its performance characteristics determined by [facility] in a manner consistent with CLIA requirements. This test has not been cleared or approved by the U.S. Food and Drug Administration. Test Performed by: [facility] - [address] [address] Test Performed by: [facility] - [address] [address] ADDITIONAL INFORMATION This test was developed and its performance characteristics determined by [facility] in a manner consistent with CLIA requirements. This test has not been cleared or approved by the U.S. Food and Drug Administration. Test Performed by: [facility] - [address] [address] 17 Normal Range 180 to 914 Indeterminate Range 145 to 180 Deficient Range <145 18 REFERENCE VALUE <=13 (Fasting) ADDITIONAL INFORMATION This test was developed and its performance characteristics determined by [facility] in a manner consistent with CLIA requirements. This test has not been cleared or approved by the U.S. Food and Drug Administration. Test Performed by: [facility] - [address] [address] 19 Because ethnic data is not always readily [...] 15-29 5 Kidney failure <15 (or dialysis) 20 Test Performed by: [address] [address] Test Performed by: [address] [address] 22 REFERENCE VALUE <1.0 (Negative) 23 REFERENCE VALUE <1.0 (Negative) 24 REFERENCE VALUE <1.0 (Negative) 25 REFERENCE VALUE <1.0 (Negative) 26 REFERENCE VALUE <1.0 (Negative) 27 REFERENCE VALUE <1.0 (Negative) Test Performed by: [facility] - [address] [address] 28 RESULT: 01:02,05:01 REFERENCE VALUE Not Applicable 29 RESULT: 02:01,06:02 DQ Serologic Equivalent: 2,6 REFERENCE VALUE Not Applicable 30 These genes are permissive for celiac disease. The absence of HLA celiac permissive genes would make the presence of celiac disease unlikely. However, these genes can also be present in the normal population. ADDITIONAL INFORMATION Method: Molecular typing of HLA antigens performed using reverse SSOP and/or SSP methods, reported as serological equivalents and low to medium resolution molecular values. Performing Laboratory CLIA# [id number] Test Performed by: [address] [address] 31 REFERENCE VALUE <4.0 (Negative) Test Performed by: [address] [address] 32 Negative serology. Celiac disease unlikely. However, approximately 10% of patients with celiac disease are seronegative. Also, patients who are already adhering to a gluten-free diet may be seronegative. If celiac disease is highly clinically suspected, consider HLA-DQ typing. Test Performed by: [address] [address] Procedures Description No Information Encounters Type Date Location Provider CPT E/M Dx Office Visit 03/28/2017 3:30p [facility] [place] [address] I73.81 F44.5 Office Visit 03/13/2017 4:20p [facility], [address] M54.5 Printing Services Coordinator M.D. R76.0 G25.81 R79.82 Office Visit 02/20/2017 4:00p [facility], [address] M54.5 Printing Services Coordinator M.D. R76.0 G25.81 R73.9 Office Visit 01/17/2017 2:00p [facility] [address] R79.82 Of Printing Services Coordinator M.D. H55.01 M35.7 G89.29 L30.9 Office Visit 12/16/2015 10:30a [facility] [place] [address] F44.5 Of Printing Services Coordinator M35.7 Office Visit 03/17/2015 2:00p [facility] [place] [address] F44.5 Of Printing Services Coordinator H55.01 Office Visit 01/27/2015 4:00p [facility] [place] [address] F44.5 Of Printing Services Coordinator H55.01 Office Visit 12/16/2014 9:30a [facility] [place] [address] 306.7 Of Printing Services Coordinator 379.51 Plan of Care Future Appointment(s):06/07/2017 1:40 pm - [facility] Balderas M.D. at [facility]07/11/2017 4:00 pm - Parisa Gonzalez MD at [facility]0004/24/2017 - [facility] Balderas M.D.I73.81 LcigcivnkigilztR77.00 Raynaud's syndrome without dnbvlrhlB09.82 Elevated C-reactive protein (CRP)M79.673 Pain in unspecified footFollow up:Follow up in 4 to 5 weeks or sooner if needed
[2017-05-20 15:37] LABS: EGFR Non-African American 81.1 (>60)
--- NOTE | 2017-05-20 18:28 | ED ---
Ashanti Gongora Julia, scribed for Bruna Borges MD on 05/20/17 at 1448 . Complex/Multi-Sys Presentation - HPI Summary HPI Summary: This patient is a 21 year old M [facility] accompanied by grandparents with a chief complaint of vomiting, diarrhea, and dry heaving for past few days. Patient reports severe dehydration, dizziness, weakness, body pain, syncopal events, and abdominal pain. The patient rates the pain 9/10 in severity. Patient has history of non-epileptic seizures, PNA, hyper-mobility, anxiety, and fibromyalgia. Patient has experienced similar symptoms previously. - History Of Current Complaint Chief Complaint: EDAbdPain Time Seen by Provider: 05/20/17 14:34 Hx Obtained From: Patient Onset/Duration: Lasting Days Timing: Constant Location: Pain At: - abdomen Associated Signs And Symptoms: Positive: Other - n/v/d, dehydration, dizziness, weakness, body pain, syncopal events, and abdominal pain - Allergies/Home Medications Allergies/Adverse Reactions: Allergies Allergy/AdvReac Type Severity Reaction Status Date / Time Albuterol Allergy Severe Airway Verified 12/31/16 09:23 Obstruction Latex Allergy Hives/Diff. Verified 12/31/16 09:23 Breathing/I tching BASAL Allergy Severe TONGUE Uncoded 12/31/16 09:23 SWELLING, TROUBLE BREATHING DOGS Allergy Severe ITCHY Uncoded 12/31/16 09:23 EYES, SNEEZING CHACHO Allergy Severe TONGUE Uncoded 12/31/16 09:23 SWELLING, DYSPNEA PEACHES Allergy Severe VOMITING, Uncoded 12/31/16 09:23 TONGUE SWELLING, DIFFICULTY BREATHING SALMON Allergy Severe TONGUE Uncoded 12/31/16 09:23 SWELLING WEEDS Allergy Severe DYSPNEA Uncoded 12/31/16 09:23 CATS Allergy ITCHY Uncoded 12/31/16 09:23 EYES, SNEEZING PMH/Surg Hx/FS Hx/Imm Hx Endocrine/Hematology History: Denies: Hx Anticoagulant Therapy, Hx Diabetes, Hx Thyroid Disease Cardiovascular History: Denies: Hx Congestive Heart Failure, Hx Deep Vein Thrombosis, Hx Hypertension , Hx Myocardial Infarction, Hx Pacemaker/ICD Respiratory History: Reports: Hx Asthma - EXERCISE INDUCED Denies: Hx Chronic Obstructive Pulmonary Disease (COPD), Hx Lung Cancer, Hx Pneumonia, Hx Pulmonary Embolism GI History: Reports: Other GI Disorders - appendectomy Denies: Hx Gall Bladder Disease, Hx Gastrointestinal Bleed, Hx Ulcer, Hx Urosepsis History: Denies: Hx Dialysis, Hx Kidney Stones, Hx Renal Disease Musculoskeletal History: Reports: Hx Fibromyalgia, Other Musculoskeletal History - Hypermobility arthralgia Syndrome Sensory History: Reports: Other Sensory Impairments - 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 Opthamlomology History: Reports: Other Sensory Impairments - 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 Neurological History: 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, pseudoseizures Denies: Hx Dementia, Hx Migraine, Hx Transient Ischemic Attacks (TIA) Psychiatric History: Reports: Hx Anxiety, Hx Depression Denies: Hx Eating Disorder, Hx Schizophrenia, Hx Bipolar Disorder, Hx of Violent Episodes Against Others - Surgical History Surgery Procedure, Year, and Place: ORAL SURGERY, EYE SURGERY FOR NYSTAGMUS Infectious Disease History: No Infectious Disease History: Denies: Traveled Outside the [place] in Last 30 Days - Family History Known Family History: Positive: Cardiac Disease, Diabetes Negative: Renal Disease - Social History Alcohol Use: None Substance Use Type: Reports: Marijuana Substance Use Comment - Amount & Last Used: past hx of Oxycodone abuse- clean now Hx Tobacco Use: Yes Smoking Status (MU): Former Smoker Review of Systems Constitutional: Other - weakness Positive: Fatigue, Other - dehydrated Negative: Sore Throat, Ear Ache Negative: Chest Pain Positive: Abdominal Pain, Vomiting, Diarrhea, Nausea Positive: no symptoms reported Positive: Myalgia Negative: Rash Positive: Syncope All Other Systems Reviewed And Are Negative: No Physical Exam - Summary Physical Exam Summary: Appearance: Alert, conversive, nontoxic appearing Skin: Warm, dry, no mottling, no rashes, no contusions HEENT: EOMI, PERRL, moist mucous membranes Neck: No masses on the neck, supple Respiratory: Clear to auscultation, breath sounds present, no rales, no rhonchi , no wheezes Cardiovascular: RRR, pulses are symmetrical in both lower and upper extremities Abdomen: Soft, non-tender Bowel Sounds: Present Musculoskeletal: No CVA tenderness, no obvious deformity, moving all extremities in a grossly normal manner Neurological: A&Ox3, CN II-XII Intact, moving all extremities symmetrically Psychiatric: Normal affect and mood Triage Information Reviewed: Yes Vital Signs On Initial Exam: Initial Vitals Temp Pulse Resp BP Pulse Ox 98.1 F 80 18 129/83 95 05/20/17 14:39 05/20/17 14:39 05/20/17 14:39 05/20/17 14:39 05/20/17 14:39 Vital Signs Reviewed: Yes Diagnostics - Vital Signs Vital Signs Temp Pulse Resp BP Pulse Ox 05/20/17 14:39 98.1 F 80 18 129/83 95 - Laboratory Result Diagrams: 05/20/17 15:12 05/20/17 15:12 Lab Statement: Any lab studies that have been ordered have been reviewed, and results considered in the medical decision making process. Re-Evaluation - Re-Evaluation 1st Re-Evaluation Time: 15:52 Change: Improved - Patient is feeling better and is more relaxed. Complex Multi-Symp Course/Dx Course Of Treatment: Patient was given Zofran for acute nausea and vomitting. Patient is instructed to follow up with primary care physician to address the chronic nature of these symtoms. Patinet is mildly dehydrated. - Diagnoses Provider Diagnoses: Mild dehydration, Acute vomiting Discharge - Discharge Plan Condition: Stable Disposition: HOME Prescriptions: Ondansetron ODT TAB* [Zofran 4 MG Odt TAB*] 4 mg PO Q8H PRN #20 tab.odt PRN Reason: Nausea Patient Education Materials: Dehydration (ED), Acute Nausea and Vomiting (ED) Referrals: Percy Londono MD [Primary Care Provider] - Additional Instructions: return if worse or any new symptoms. It is important to follow up with your doctor regarding your chronic issues. Take the zofran as needed for nausea and vomiting. The documentation as recorded by the Ashanti luna Julia accurately reflects the service I personally performed and the decisions made by , Bruna Borges MD.
[2017-05-20 18:50] VITALS: BP 131/74
== END 2017-05-20 18:50 | disposition home or self-care (01) ==
LOC: ED 14:26
DX: R11.2 Nausea with vomiting, unspecified (principal); E86.0 Dehydration; Z87.891 Personal history of nicotine dependence
CPT/HCPCS: 36415; 80053; 83690; 85025; 96361; 96374; 96375; 99282; J2060; J2405

== ENCOUNTER 2017-09-13 23:01 | Inpatient (IN) | payer OTHER ==
[2017-09-13] MEDS ORDERED: NS 0.9% 1000 ML* 2,000 ML IV ONE (23:31)
[2017-09-13] MEDS ORDERED: LORazepam INJ* 2 MG/ML 1 ML VIAL IV ONE (23:31)
[2017-09-13 23:48] LABS: ABS Basophils 0.1 10^3/ul (0-0.2); ABS Eosinophils 0.4 10^3/ul (0-0.6); ABS Lymphocytes 4.3 10^3/ul (1.0-4.8); ABS Monocytes 0.8 10^3/ul (0-0.8); ABS Neutrophils 6.6 10^3/ul (1.5-7.7); ABS Nucleated RBC 0 10^3/ul; Eosinophil % 3.1 % (0-6); Hematocrit 47 % (42-52); Hemoglobin 16.2 g/dl (14.0-18.0); Lymphocyte % 35.4 % (25-47); Mean Corpuscular HGB Conc 35 g/dl (31-36); Mean Corpuscular Hemoglobin 31 pg (27-31); Mean Corpuscular Volume 90 fL (80-94); Mean Platelet Volume 8.3 um3 (7.4-10.4); Nucleated Red Blood Cells % 0.1; Platelet Count 242 10^3/ul (150-450); Red Cell Distribution Width 13 % (10.5-15); White Blood Count 12.2 10^3/ul (3.5-10.8)
[2017-09-13 23:57] LABS: INR 0.92 (0.77-1.02)
[2017-09-14 00:06] LABS: EGFR Non-African American 74.3 (>60)
[2017-09-14] MEDS ORDERED: NS 0.9% 1000 ML* 2,000 ML IV ONE (02:06)
[2017-09-14] MEDS ORDERED: LORazepam INJ* 2 MG/ML 1 ML VIAL IV ONE ×2 (02:19→04:01)
[2017-09-14 03:24] LABS: Urine Appearance Clear; Urine Blood Negative (Negative); Urine Color Yellow; Urine Ketones Negative (Negative); Urine Protein Negative (Negative); Urine Specific Gravity 1.013 (1.010-1.030); Urine Urobilinogen Negative (Negative)
--- NOTE | 2017-09-14 07:24 | ED ---
Eugene Gongora Rebecca, scribed for Tacos Mojica MD on 09/13/17 at 2337 . Neurological HPI - HPI Summary HPI Summary: Pt is a 22 y/o M BIBA who presents to ED due to seizures. PMHx seizures for about 6 years but per mother, he has begun having major changes to hsi seizures recently. Monday (5 days ago) the pt had 23 seizures within 45 minutes, per mother. Then tonight, beginning at 2100, he has had multiple recurrent seizures with 4 since arriving in the ED. Mother additionally notes that he complains of bilateral GONZALEZ and diffuse R-sided pain. Sx aggravated by pain, alleviated by nothing. Mother reports he previously did not experience seizures nearly as often. Neurologist is Dr. Gonzalez has an MRI scheduled for this Monday (2 days from now). - History of Current Complaint Chief Complaint: EDSeizure Stated Complaint: SEIZURE Time Seen by Provider: 09/13/17 23:06 Hx Obtained From: Family/Recreation Director - Mother Onset/Duration: Started hours ago, Still Present Timing: Intermittent Episodes Lasting: Current Severity: None Pain Intensity: 0 Pain Scale Used: 0-10 Numeric Alleviating: Nothing Associated Signs and Symptoms: Positive: Headache Similar Episode/Dx as: Seizures 5 days ago - Allergy/Home Medications Allergies/Adverse Reactions: Allergies Allergy/AdvReac Type Severity Reaction Status Date / Time albuterol Allergy Airway Verified 09/14/17 05:01 Obstruction aripiprazole [From Abilify] Allergy INCREASED Verified 09/07/17 14:09 SEIZURE ACTIVITY latex Allergy Hives Verified 09/14/17 05:01 venlafaxine Allergy INCREASED Verified 09/07/17 14:11 SEIZURE ACTIVITY BASAL Allergy Severe TONGUE Uncoded 09/07/17 14:09 SWELLING, TROUBLE BREATHING DOGS Allergy Severe ITCHY Uncoded 09/07/17 14:09 EYES, SNEEZING CHACHO Allergy Severe TONGUE Uncoded 09/07/17 14:09 SWELLING, DYSPNEA PEACHES Allergy Severe VOMITING, Uncoded 09/07/17 14:09 TONGUE SWELLING, DIFFICULTY BREATHING SALMON Allergy Severe TONGUE Uncoded 09/07/17 14:09 SWELLING WEEDS Allergy Severe DYSPNEA Uncoded 09/07/17 14:09 CATS Allergy ITCHY Uncoded 09/07/17 14:09 EYES, SNEEZING PMH/Surg Hx/FS Hx/Imm Hx Endocrine/Hematology History: Denies: Hx Anticoagulant Therapy, Hx Diabetes, Hx Thyroid Disease Cardiovascular History: Denies: Hx Congestive Heart Failure, Hx Deep Vein Thrombosis, Hx Hypertension , Hx Myocardial Infarction, Hx Pacemaker/ICD Respiratory History: Reports: Hx Asthma - EXERCISE INDUCED Denies: Hx Chronic Obstructive Pulmonary Disease (COPD), Hx Lung Cancer, Hx Pneumonia, Hx Pulmonary Embolism GI History: Reports: Other GI Disorders - appendectomy Denies: Hx Gall Bladder Disease, Hx Gastrointestinal Bleed, Hx Ulcer, Hx Urosepsis History: Denies: Hx Dialysis, Hx Kidney Stones, Hx Renal Disease Musculoskeletal History: Reports: Hx Fibromyalgia, Other Musculoskeletal History - Hypermobility arthralgia Syndrome Sensory History: Reports: Other Sensory Impairments - 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 Denies: Hx Hearing Aid Opthamlomology History: Reports: Other Sensory Impairments - 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 APPENDECTOMY Infectious Disease History: No Infectious Disease History: Denies: Traveled Outside the [place] in Last 30 Days - Family History Known Family History: Positive: Cardiac Disease, Diabetes Negative: Renal Disease - Social History Alcohol Use: None Substance Use Type: Reports: Marijuana Substance Use Comment - Amount & Last Used: past hx of Oxycodone abuse- clean now Hx Tobacco Use: Yes Smoking Status (MU): Former Smoker Review of Systems Negative: Fever Positive: Other - Diffuse R-sided pain Neurological: Other - Seizures Positive: Headache - bilateral All Other Systems Reviewed And Are Negative: Yes Physical Exam - Summary Physical Exam Summary: General: well-appearing, no pain distress Skin: warm, color reflects adequate perfusion, dry Head: normal Eyes: EOMI, ROSALIE ENT: normal Neck: supple, nontender Respiratory: CTA, breath sounds present Cardiovascular: RRR Musculoskeletal: when patient is having seizure-like activity, he has his arms flexed and legs extended and there is whole body shaking with the head and eyes trned to the left Neurological: normal, sensory/motor intact, A&O x3 Psychological: affect/mood appropriate Triage Information Reviewed: Yes Vital Signs On Initial Exam: Initial Vitals Temp Pulse Resp BP Pulse Ox 98.5 F 104 18 134/80 95 09/13/17 23:16 09/13/17 23:16 09/13/17 23:16 09/13/17 23:16 09/13/17 23:16 Vital Signs Reviewed: Yes Diagnostics - Vital Signs Vital Signs Temp Pulse Resp BP Pulse Ox 09/13/17 23:17 93 96 09/13/17 23:16 98.5 F 104 18 134/80 95 - Laboratory Lab Results: Lab Results 09/13/17 09/13/17 09/13/17 Range/Units 23:41 23:41 23:41 WBC 12.2 H (3.5-10.8) 10^3/ul RBC 5.20 (4.0-5.4) 10^6/ul Hgb 16.2 (14.0-18.0) g/dl Hct 47 (42-52) % MCV 90 (80-94) fL MCH 31 (27-31) pg MCHC 35 (31-36) g/dl RDW 13 (10.5-15) % Plt Count 242 (150-450) 10^3/ul MPV 8.3 (7.4-10.4) um3 Neut % (Auto) 54.2 (38-83) % Lymph % (Auto) 35.4 (25-47) % [place] % (Auto) 6.8 (0-7) % Eos % (Auto) 3.1 (0-6) % Baso % (Auto) 0.5 (0-2) % Absolute Neuts (auto) 6.6 (1.5-7.7) 10^3/ul Absolute Lymphs (auto) 4.3 (1.0-4.8) 10^3/ul Absolute Monos (auto) 0.8 (0-0.8) 10^3/ul Absolute Eos (auto) 0.4 (0-0.6) 10^3/ul Absolute Basos (auto) 0.1 (0-0.2) 10^3/ul Absolute Nucleated RBC 0 10^3/ul Nucleated RBC % 0.1 INR (Anticoag Therapy) (0.77-1.02) APTT (26.0-36.3) seconds Sodium 139 (139-145) mmol/L Potassium TNP Chloride 102 (101-111) mmol/L Carbon Dioxide 23 (22-32) mmol/L Anion Gap 14 H (2-11) mmol/L BUN 10 (6-24) mg/dL Creatinine 1.24 H (0.67-1.17) mg/dL Est GFR ( Amer) 95.6 (>60) Est GFR (Non-Af Amer) 74.3 (>60) BUN/Creatinine Ratio 8.1 (8-20) Glucose 86 (70-100) mg/dL Lactic Acid 5.6 H* (0.5-2.0) mmol/L Calcium 9.7 (8.6-10.3) mg/dL Total Bilirubin 0.40 (0.2-1.0) mg/dL AST TNP ALT 22 (7-52) U/L Alkaline Phosphatase 82 (34-104) U/L Total Creatine Kinase 84 (10-223) U/L C-Reactive Protein 1.59 (< 5.00) mg/L Total Protein 7.4 (6.4-8.9) g/dL Albumin 4.5 (3.2-5.2) g/dL Globulin 2.9 (2-4) g/dL Albumin/Globulin Ratio 1.6 (1-3) TSH 3.37 (0.34-5.60) mcIU/mL Urine Color Urine Appearance Urine pH (5-9) Ur Specific [place] (1.010-1.030) Urine Protein (Negative) Urine Ketones (Negative) Urine Blood (Negative) Urine Nitrate (Negative) Urine Bilirubin (Negative) Urine Urobilinogen (Negative) Ur Leukocyte Esterase (Negative) Urine Glucose (Negative) 09/13/17 09/14/17 09/14/17 Range/Units 23:41 03:01 03:04 WBC (3.5-10.8) 10^3/ul RBC (4.0-5.4) 10^6/ul Hgb (14.0-18.0) g/dl Hct (42-52) % MCV (80-94) fL MCH (27-31) pg MCHC (31-36) g/dl RDW (10.5-15) % Plt Count (150-450) 10^3/ul MPV (7.4-10.4) um3 Neut % (Auto) (38-83) % Lymph % (Auto) (25-47) % [place] % (Auto) (0-7) % Eos % (Auto) (0-6) % Baso % (Auto) (0-2) % Absolute Neuts (auto) (1.5-7.7) 10^3/ul Absolute Lymphs (auto) (1.0-4.8) 10^3/ul Absolute Monos (auto) (0-0.8) 10^3/ul Absolute Eos (auto) (0-0.6) 10^3/ul Absolute Basos (auto) (0-0.2) 10^3/ul Absolute Nucleated RBC 10^3/ul Nucleated RBC % INR (Anticoag Therapy) 0.92 (0.77-1.02) APTT 31.3 (26.0-36.3) seconds Sodium (139-145) mmol/L Potassium Chloride (101-111) mmol/L Carbon Dioxide (22-32) mmol/L Anion Gap (2-11) mmol/L BUN (6-24) mg/dL Creatinine (0.67-1.17) mg/dL Est GFR ( Amer) (>60) Est GFR (Non-Af Amer) (>60) BUN/Creatinine Ratio (8-20) Glucose (70-100) mg/dL Lactic Acid 1.3 (0.5-2.0) mmol/L Calcium (8.6-10.3) mg/dL Total Bilirubin (0.2-1.0) mg/dL AST ALT (7-52) U/L Alkaline Phosphatase (34-104) U/L Total Creatine Kinase (10-223) U/L C-Reactive Protein (< 5.00) mg/L Total Protein (6.4-8.9) g/dL Albumin (3.2-5.2) g/dL Globulin (2-4) g/dL Albumin/Globulin Ratio (1-3) TSH (0.34-5.60) mcIU/mL Urine Color Yellow Urine Appearance Clear Urine pH 7.0 (5-9) Ur Specific [place] 1.013 (1.010-1.030) Urine Protein Negative (Negative) Urine Ketones Negative (Negative) Urine Blood Negative (Negative) Urine Nitrate Negative (Negative) Urine Bilirubin Negative (Negative) Urine Urobilinogen Negative (Negative) Ur Leukocyte Esterase Negative (Negative) Urine Glucose Negative (Negative) Result Diagrams: 09/13/17 23:41 09/13/17 23:41 Lab Statement: Any lab studies that have been ordered have been reviewed, and results considered in the medical decision making process. - CT Brain CT CT Interpretation: No Acute Changes - 1. No definitive evidence of acute intracranial hemorrhage, intracranial mass effect, hydrocephalus, or depressed calvarial fracture is appreciated. 2. The visualized portions of the paranasal sinuses are clear. ED physician reviewed this radiology report. CT Interpretation Completed By: Radiologist Re-Evaluation - Re-Evaluation First Eval Re-Evaluation Time: 02:48 Change: Improved Comment: No longer having seizure-like activity. Explained that the lactic acid will be repeated. Would prefer to have a head CT done while in the ED. Second Eval Re-Evaluation Time: 03:55 Comment: Discussing lactic acid. Third Eval Re-Evaluation Time: 05:50 Comment: Pt was asleep. Course/Dx - Course Course Of Treatment: DISCUSSED RESULTS WITH DR BOUCHER, NEUROLOGY, WHO RECOMMENDS AND MHE. DISPOSITION PENDING AT SHIFT CHANGE. Assessment/Plan: Medication reviewed. Allergies noted. - Diagnoses Provider Diagnoses: Mental health problem, Seizure-like activity - Physician Notifications Discussed Care Of Patient With: Chevy Boucher Time Discussed With Above Provider: 06:41 Instructed by Provider To: Other - Recommended a MHE. Discharge - Sign-Out/Discharge Documenting (check all that apply): Sign-Out Patient Signing out patient TO: Magan Romo - Pending MHE - Discharge Plan Condition: Stable Disposition: [facility]CHIATRIC FACILITY[facility] Referrals: Percy Londono MD [Primary Care Provider] - - Billing Disposition and Condition Condition: STABLE Disposition: PSY-[facility] The documentation as recorded by the Eugene luna Rebecca accurately reflects the service I personally performed and the decisions made by me, Tacos Mojica MD.
--- NOTE | 2017-09-14 08:09 | RAD ---
INDICATION: Possible seizure COMPARISON: None TECHNIQUE: Noncontrast axial source images were acquired from the skull base to the vertex. FINDINGS: Ventricles/sulci: The ventricles and cisterns are normal in size and configuration for age. Brain parenchyma: There is no focal parenchymal finding, evidence of intracranial mass, or intracranial mass effect. Intracranial hemorrhage:None. Extra-axial spaces: There are no abnormal extra axial fluid collections or evidence of extra-axial mass. Calvarium: There is no calvarial fracture or other calvarial abnormality. Scalp: There is no evidence of scalp or extracalvarial soft tissue abnormality. Paranasal sinuses/mastoid: The paranasal sinuses and mastoid air cells are clear. Other: None. IMPRESSION: NEGATIVE EXAMINATION
[2017-09-14] MEDS ORDERED: Ammonia Inhalant* 1 EA AMP ONE (08:19)
[2017-09-14] MEDS ORDERED: Lurasidone(*) 20 MG TAB PO ONE ×2 (08:24→13:30)
[2017-09-14] MEDS ORDERED: NS 0.9% 1000 ML* 1,000 ML IV ONE (08:31)
[2017-09-14] MEDS ORDERED: Gadoteridol* (CONTRAST) 279.3 MG/ML 10 ML IV ONE (15:21)
--- NOTE | 2017-09-14 16:55 | RAD ---
INDICATION: Seizure COMPARISON: Same day CT of the brain that did not reveal any acute abnormalities. TECHNIQUE: Sagittal T1, axial T1, T2, susceptibility, FLAIR and diffusion-weighted images were obtained. In addition, axial, sagittal and coronal T1-weighted images were obtained following intravenous injection of 15 mL of ProHance contrast. FINDINGS: The ventricles, cisterns and sulci appear to be within normal limits. The colvin-white matter differentiation is adequately maintained. There is no mass, mass effect or other focal abnormality. No areas of restricted diffusion are present. There is no evidence for infarct or hemorrhage. There are fluid intensity secretions inspissated in the bilateral maxillary sinuses. The remaining sinuses are clear. The mastoid air cells appear to be adequately aerated. IMPRESSION: 1. No intracranial masses, enhancing or otherwise. 2. No MRI appearance consistent with mesial temporal lobe sclerosis. 3. Mild maxillary sinus mucosal disease.
--- NOTE | 2017-09-14 19:48 | HP ---
CC: Dr. Londono; Dr. Gonzalez * HISTORY AND PHYSICAL: DATE OF ADMISSION: 09/14/17 HOSPITAL STATUS: Observation. PROVIDER: Merced Ramirez NP ATTENDING PHYSICIAN: Dr. Hermann Cortes * (report dictated by Merced Ramirez NP). PRIMARY CARE DOCTOR: Dr. Londono. CHIEF COMPLAINT: Dr. Londono. NEUROLOGIST: Dr. Gonzalez. SUPERVISOR FILTRATION: Dr. Balderas. CHIEF COMPLAINT: Seizure activity and weakness. HISTORY OF PRESENT ILLNESS: Mr. Chavze is a 22-year-old male with a past medical history of psycho-neurogenic nonepileptic seizures, hypermobility syndrome with arthralgias, anxiety, and depression who presented to the emergency department last evening with his mother for complaints of increased frequency and seizure activity and generalized weakness. It is reported by the patient and the mother that the patient has approximately a 6-year history of psychogenic nonepileptic seizure activities, in which he follows with Dr. Gonzalez and has been worked up in [place] and has had a video EEG monitoring, which has witnessed this seizure-like activity and has shown no epilepsy. The patient has been following with Dr. Gonzalez closely and is scheduled for an MRI tomorrow for an abnormal finding on his neurological exam. He comes to the emergency department last evening due to 23 seizures within 45 minutes and the mother called EMS. The patient was brought to the emergency department. Since arriving in the emergency department, the patient has had multiple frequent seizure-like activities with his arms in like flex and extended and whole body shaking with no postictal phase. The patient was noted to have an elevated lactic acid on admission to 5.6, which has resolved with IV fluids. He was also noted to have a creatinine of 1.24, which also resolved with IV fluids. The patient was seen and evaluated in the emergency department in which Hospital Medicine was asked to evaluate the patient was generalized weakness and seizure activity. The mother is at the bedside and reports that they do not like to come to the emergency department and that they became very concerned due to the increased frequency of the seizure activity. The patient reports these are triggered by pain in which he reports pain on his right side from his adventist down his right arm down to his right foot. He reports generalized weakness and reports that he feels that he is not able to walk. Denies numbness or tingling. Normally, he walks with a cane at his baseline. He denies any recent illnesses, upper respiratory colds, fevers, chills. No urinary symptoms. He denies depression or anxiety and reports that he has a 9- month-old baby and is currently together with his girlfriend and denies any stress in his personal life besides reporting "the stress of the seizure activity." The patient denies alcohol use and reports he does self-medicate with cannabis and does find relief from this. He has a [facility] certified prescription for cannabis. However, he states he has not been able to finish the registration due to "the computer system not working"; however, he does report that he self- medicates with cannabis bud. Per mother, she states that this has helped before in the past so much that he has been able to not have to use his cane and the pain is much better controlled. He reports that he does not take anything else for pain, but does currently take Celebrex as prescribed by Dr. Balderas. The patient denies suicidal ideation, hallucination, depression, or anxiety. PAST MEDICAL HISTORY: 1. Psychogenic nonepileptic seizures. 2. Hypermobility syndrome with arthralgias. 3. Anxiety and depression. 4. History of psych admission when he was 19 years old 5. Status post appendectomy. 6. Congenital nystagmus. 7. Asthma. CURRENT MEDICATIONS: 1. Celebrex 100 mg p.o. b.i.d. 2. Vitamin D 1000 units p.o. daily. 3. Latuda 20 mg p.o. daily. 4. Phenergan 25 mg p.o. q.8 hours p.r.n. ALLERGIES: CATS, WEEDS, SALMON, PEACHES, CHACHO, DOGS, BASIL, VENLAFAXINE, LATEX , ABILIFY, ALBUTEROL. FAMILY HISTORY: The patient's mother has RA. SOCIAL HISTORY: The patient denies alcohol use, but does report he self- medicates with cannabis. Denies other recreational drug use. He currently, lives with grandparents and his girlfriend and his 5-month-old baby. He uses a cane to assist in his walking. REVIEW OF SYSTEMS: A 14-point review of systems was performed. All the pertinent positives and negatives are mentioned in the history of present illness, otherwise are negative. PHYSICAL EXAMINATION GENERAL APPEARANCE: A well-developed, 22-year-old male, lying on the emergency department stretcher, alert and oriented x3. Answering questions appropriately. VITAL SIGNS: Temperature 98.5, heart rate 69, respirations 18, O2 sat 97% on room air, blood pressure 131/80. HEENT: Head is normocephalic, atraumatic. Pupils are equal and reactive to light. Oropharynx is clear. Moist mucous membranes. Poor dentition. NECK: Supple. LUNGS: Clear to auscultation bilaterally. Good aeration throughout. CARDIAC: S1, S2. Regular rate and rhythm. No murmur, gallop, or rub appreciated. No lower extremity edema noted. ABDOMEN: Soft, nontender, nondistended. Normal bowel sounds throughout. No hepatosplenomegaly. EXTREMITIES: No clubbing, cyanosis, or edema. The patient has full range of motion with passive range of motion. NEURO: Alert and oriented x3. No facial droop. Tongue is midline. The patient is able to move all his extremities, but has noted weakness 3/5 throughout all extremities. Both of his hands are slightly contracted. No focal deficits are noted otherwise. ASSESSMENT AND PLAN: A 22-year-old male with a past medical history of psychogenic nonepileptic seizure activity, history of hypermobility syndrome with arthralgias, anxiety, depression, and congenital nystagmus, who presents to the emergency department today with report of worsening seizure-like activities and weakness. 1. Psychogenic nonepileptic epilepsy. The patient will be admitted to be medical service and will be seen by neurologist, Dr. Jamil, due to the report of increased weakness. He is supposed to undergo an MRI tomorrow for a left Babinski sign noted on Dr. Gonzalez's last evaluation. We will go ahead and do this MRI today. He also will be seen by our psychiatrist. The patient will be admitted on observation status and if the MRI is negative, the thought is this is related to a psychogenic aspect, which has already been proven with normal EEGs via video monitoring while the patient has been having these episodes. There are no obvious signs of infection. We will ask PT to see the patient, as well as add on a drug tox screen. 2. Lactic acidosis secondary to the seizure-like activities. He was given several liters of fluid in the emergency department and it resolved, then it was rechecked in the emergency department and now it is back up. Plan to check it later this afternoon. 3. Elevated creatinine. This resolved with IV fluids. 4. Anxiety/depression. Continue Latuda 20 mg p.o. daily. Continue supportive treatment. 5. Hypermobility with arthralgias. He is followed by Dr. Balderas. Continue Celebrex 100 mg p.o. b.i.d. 6. Vitamin D deficiency. Continue 1000 units of vitamin D p.o. daily. 7. DVT prophylaxis: Low risk. Encourage ambulation. However, at this point, the patient is refusing to get out of bed. We will order SCDs. 8. Hospital status: Observation. TIME SPENT: Approximately 60 minutes was spent on this admission. MERCED RAMIREZ, KEHINDE [id number]/[facility] #: [id number] ROSANNE
[2017-09-14] MEDS ORDERED: celeCOXIB CAP* 100 MG PO SCH (21:00)
[2017-09-14] MEDS ORDERED: LORazepam INJ* 2 MG/ML 1 ML VIAL IV PUSH ONE (22:43)
[2017-09-14] MEDS ORDERED: LORazepam INJ* 2 MG/ML 1 ML VIAL ONE (22:45)
--- NOTE | 2017-09-15 07:41 | ED ---
Sergo Gongora Gabriel, scribed for Magan Romo MD on 09/14/17 at 0843 . Progress - Progress Note Progress Note: At 0810 I was called into the room for potential seizure activity upon exam there was a congenital nystagmus and what appeared to be voluntary movements of his head from left to right. There were no focal deficits and I administered smelling salts. As soon as he smelled them he asked what that was. The mother is very distressed and understands he is getting a MHE. She left the room before I could explain the diagnoses of pseudoseizures with her. Mental health states they are unable to evaluate the patient at this time due to the extreme body shaking and due to the patient stating his too weak to stand. The pt will be admitted to the hospitalist for observation until the pseudoseizure activity stops. Re-Evaluation - Re-Evaluation First Eval Re-Evaluation Time: 02:48 Change: Improved Comment: No longer having seizure-like activity. Explained that the lactic acid will be repeated. Would prefer to have a head CT done while in the ED. Second Eval Re-Evaluation Time: 03:55 Comment: Discussing lactic acid. Third Eval Re-Evaluation Time: 05:50 Comment: Pt was asleep. Fifth Eval Re-Evaluation Time: 09:38 Change: Improved Comment: The patient is alert and talking, he states stress and pain bring on the episode. I see no indication for IV benzodiazepine at this time. Also I do not want to obscure the MHE with it. The patient and family are quite distressed due to the frequent episodes. The patient will be admitted and the MHE will be performed there. Course/Dx - Course Course Of Treatment: At 0810 I was called into the room for potential seizure activity upon exam there was a congenital nystagmus and what appeared to be voluntary movements of his head from left to right. There were no focal deficits and I administered smelling salts. As soon as he smelled them he asked what that was. The mother is very distressed and understands he is getting a MHE. She left the room before I could explain the diagnoses of pseudoseizures with her. Mental health states they are unable to evaluate the patient at this time due to the extreme body shaking and due to the patient stating his too weak to stand. The pt will be admitted to the hospitalist for observation until the pseudoseizure activity stops. - Diagnoses Provider Diagnoses: Pseudoseizures - Provider Notifications Discussed Care Of Patient With: Reji Cortes Time Discussed With Above Provider: 09:22 Instructed by Provider To: Admit As Observation Discharge - Sign-Out/Discharge Documenting (check all that apply): Discharge/Admit/Transfer - admitted - Discharge Plan Condition: Stable Disposition: ADMITTED TO [facility] Referrals: Percy Londono MD [Primary Care Provider] - The documentation as recorded by the Sergo luna Gabriel accurately reflects the service I personally performed and the decisions made by Demetrius neil Jerry, MD.
[2017-09-15] MEDS: CELECOXIB 100 MG PO SCH ×2 (08:51→21:49)
[2017-09-15] MEDS: Cholecalciferol TAB* 1000 UNITS PO SCH (08:51)
[2017-09-15] MEDS: Promethazine TAB* 25 MG PO PRN (08:58)
[2017-09-15] MEDS ORDERED: Lurasidone(*) 20 MG TAB PO SCH (09:00)
--- NOTE | 2017-09-15 11:11 | PN ---
Subjective Date of Service: 09/15/17 Interval History: Patient does not communicate well. Objective Active Medications: Celecoxib (Celebrex Cap*) 100 mg PO BID [facility] Last Admin: 09/15/17 08:51 Dose: 100 mg Cholecalciferol (Vitamin D Tab*) 1,000 units PO DAILY [facility] Last Admin: 09/15/17 08:51 Dose: 1,000 units Promethazine HCl (Phenergan Tab*) 25 mg PO Q8H PRN PRN Reason: NAUSEA Last Admin: 09/15/17 08:58 Dose: 25 mg Vital Signs - 8 hr 09/15/17 09/15/17 09/15/17 03:43 04:51 07:33 Temperature 97.5 F 98.0 F Pulse Rate 81 86 Respiratory 16 16 18 Rate Blood Pressure 130/76 129/71 (mmHg) O2 Sat by Pulse 95 98 Oximetry 09/15/17 09/15/17 09:00 10:00 Temperature 98.0 F 97.8 F Pulse Rate 76 Respiratory 16 14 Rate Blood Pressure 124/54 122/56 (mmHg) O2 Sat by Pulse 98 98 Oximetry Oxygen Devices in Use Now: None Appearance: Supine in bed, not moving except with a pseudo-seizures. Neurological: - - One episode of very rapid shaking all 4 extremities for about 15 seconds. Result Diagrams: 09/13/17 23:41 09/14/17 09:03 Additional Lab and Data: Lab Results 09/13/17 09/13/17 09/13/17 Range/Units 23:41 23:41 23:41 WBC 12.2 H (3.5-10.8) 10^3/ul RBC 5.20 (4.0-5.4) 10^6/ul Hgb 16.2 (14.0-18.0) g/dl Hct 47 (42-52) % MCV 90 (80-94) fL MCH 31 (27-31) pg MCHC 35 (31-36) g/dl RDW 13 (10.5-15) % Plt Count 242 (150-450) 10^3/ul MPV 8.3 (7.4-10.4) um3 Neut % (Auto) 54.2 (38-83) % Lymph % (Auto) 35.4 (25-47) % [place] % (Auto) 6.8 (0-7) % Eos % (Auto) 3.1 (0-6) % Baso % (Auto) 0.5 (0-2) % Absolute Neuts (auto) 6.6 (1.5-7.7) 10^3/ul Absolute Lymphs (auto) 4.3 (1.0-4.8) 10^3/ul Absolute Monos (auto) 0.8 (0-0.8) 10^3/ul Absolute Eos (auto) 0.4 (0-0.6) 10^3/ul Absolute Basos (auto) 0.1 (0-0.2) 10^3/ul Absolute Nucleated RBC 0 10^3/ul Nucleated RBC % 0.1 INR (Anticoag Therapy) (0.77-1.02) APTT (26.0-36.3) seconds Sodium 139 (139-145) mmol/L Potassium TNP Chloride 102 (101-111) mmol/L Carbon Dioxide 23 (22-32) mmol/L Anion Gap 14 H (2-11) mmol/L BUN 10 (6-24) mg/dL Creatinine 1.24 H (0.67-1.17) mg/dL Est GFR ( Amer) 95.6 (>60) Est GFR (Non-Af Amer) 74.3 (>60) BUN/Creatinine Ratio 8.1 (8-20) Glucose 86 (70-100) mg/dL Lactic Acid 5.6 H* (0.5-2.0) mmol/L Calcium 9.7 (8.6-10.3) mg/dL Total Bilirubin 0.40 (0.2-1.0) mg/dL AST TNP ALT 22 (7-52) U/L Alkaline Phosphatase 82 (34-104) U/L Total Creatine Kinase 84 (10-223) U/L C-Reactive Protein 1.59 (< 5.00) mg/L Total Protein 7.4 (6.4-8.9) g/dL Albumin 4.5 (3.2-5.2) g/dL Globulin 2.9 (2-4) g/dL Albumin/Globulin Ratio 1.6 (1-3) TSH 3.37 (0.34-5.60) mcIU/mL Urine Color Urine Appearance Urine pH (5-9) Ur Specific [place] (1.010-1.030) Urine Protein (Negative) Urine Ketones (Negative) Urine Blood (Negative) Urine Nitrate (Negative) Urine Bilirubin (Negative) Urine Urobilinogen (Negative) Ur Leukocyte Esterase (Negative) Urine Glucose (Negative) 09/13/17 09/14/17 09/14/17 Range/Units 23:41 03:01 03:04 WBC (3.5-10.8) 10^3/ul RBC (4.0-5.4) 10^6/ul Hgb (14.0-18.0) g/dl Hct (42-52) % MCV (80-94) fL MCH (27-31) pg MCHC (31-36) g/dl RDW (10.5-15) % Plt Count (150-450) 10^3/ul MPV (7.4-10.4) um3 Neut % (Auto) (38-83) % Lymph % (Auto) (25-47) % [place] % (Auto) (0-7) % Eos % (Auto) (0-6) % Baso % (Auto) (0-2) % Absolute Neuts (auto) (1.5-7.7) 10^3/ul Absolute Lymphs (auto) (1.0-4.8) 10^3/ul Absolute Monos (auto) (0-0.8) 10^3/ul Absolute Eos (auto) (0-0.6) 10^3/ul Absolute Basos (auto) (0-0.2) 10^3/ul Absolute Nucleated RBC 10^3/ul Nucleated RBC % INR (Anticoag Therapy) 0.92 (0.77-1.02) APTT 31.3 (26.0-36.3) seconds Sodium (139-145) mmol/L Potassium Chloride (101-111) mmol/L Carbon Dioxide (22-32) mmol/L Anion Gap (2-11) mmol/L BUN (6-24) mg/dL Creatinine (0.67-1.17) mg/dL Est GFR ( Amer) (>60) Est GFR (Non-Af Amer) (>60) BUN/Creatinine Ratio (8-20) Glucose (70-100) mg/dL Lactic Acid 1.3 (0.5-2.0) mmol/L Calcium (8.6-10.3) mg/dL Total Bilirubin (0.2-1.0) mg/dL AST ALT (7-52) U/L Alkaline Phosphatase (34-104) U/L Total Creatine Kinase (10-223) U/L C-Reactive Protein (< 5.00) mg/L Total Protein (6.4-8.9) g/dL Albumin (3.2-5.2) g/dL Globulin (2-4) g/dL Albumin/Globulin Ratio (1-3) TSH (0.34-5.60) mcIU/mL Urine Color Yellow Urine Appearance Clear Urine pH 7.0 (5-9) Ur Specific [place] 1.013 (1.010-1.030) Urine Protein Negative (Negative) Urine Ketones Negative (Negative) Urine Blood Negative (Negative) Urine Nitrate Negative (Negative) Urine Bilirubin Negative (Negative) Urine Urobilinogen Negative (Negative) Ur Leukocyte Esterase Negative (Negative) Urine Glucose Negative (Negative) Assess/Plan/Problems-Billing Assessment: - Patient Problems (1) Convulsion, non-epileptic Current Visit: No Status: Acute Comment: Pseudo-seizures have been worse and different since 03/2017 accoridng to his mother. He has had the dx of pseudoseizures confirmed at more than one medical facility. I spoke with Dr. carbajal 09/15 about the dx. Awaiting psychiatric consultation. SHARYN 09/16 to check for dehydration.
[2017-09-15] MEDS ORDERED: Lurasidone(*) 20 MG TAB PO ONE (13:30)
[2017-09-15] MEDS: HYDROcodone/ACETAMIN 5-325 MG* 1 TAB PO PRN (14:24)
--- NOTE | 2017-09-15 15:04 | CONS ---
CONSULTATION REPORT: DATE OF CONSULT: 09/14/17 PROVIDER: Brina Zacarias NP. SUPERVISING PHYSICIAN: Abel Walker MD. JUSTIFICATION FOR CONSULT: In the words of the doctor, pseudoseizures. CHIEF COMPLAINT: "I had 50 seizures yesterday." HISTORY OF PRESENT ILLNESS: The patient is a 22-year-old white male who is partnered to a woman who has had his daughter who is now 5 months old. He was brought in by his mother and he is now coming from the emergency department and was admitted to the 4th floor. Gustavo is having multiple, multiple seizures per day. These have been worked up extensively. They are not epileptic seizures, they are psychogenic seizures. Gustavo's stressors include having a 5-month-old baby, a girlfriend who is less supportive than he would like her to be, although he is not open to discussing that as she is there with him. He is also quite physically debilitated by these psychogenic seizures as well as having significant physical discomfort and that is stressful to him as well. Apparently, his seizures are worse when he is being watched. When his mother is around he has more seizures and during these seizures, he is able to communicate with his girlfriend that he would like the fan because he is hot or that he is not feeling well. PAST PSYCHIATRIC HISTORY: Gustavo Chavez is known to me in the community as I was an outpatient provider for him for several months. At that time, the seizures had resolved to perhaps one per week and he was successfully negotiating the PROS program at [facility]. He did walk with a cane. He has tried many medications, none of which produced positive results that were sustained. In fact, many of these agents seemed to cause unusual side effects that were less tolerable to him than is usually observed. PREVIOUS PSYCH MEDS: Include antipsychotics, antidepressants, antianxiety and more complete list can be found in the next consult. 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 SOCIAL HISTORY: He is the second of three children. He lives with his grandmother and his girlfriend and his 5-month-old baby girl. He was born in [place], [place]. His family relocated to [place] at age 8 because of the father 's job. Moved to [place], [place] around age 11 and back to this area when he was about 16 to live in [place]. Then in 2014, the family relocated to [place], [place] because they could no longer afford the home they were staying in in [place]. The patient identifying as being heterosexual. He does have nystagmus and that was attended to when he was in school and that he had a 504 plan. He went to half days of school, then went to [employer] for digital media. He likes to write scripts for plays and he also likes to write novels about fantasy topics which include some violent imagery. REVIEW OF SYMPTOMS: The patient reports feeling fatigued. He currently denies shortness of breath. He does endorse heat intolerance. He does not endorse cold intolerance. He does not have chest pain or abdominal pain. He is having psychogenic seizures at this time and these have been extensively worked up. He denies a fever or significant change in weight. PHYSICAL EXAM AND LABORATORY DATA: I will defer to his medical providers on the 4th floor. MENTAL STATUS EXAM: This is a 5 feet 9, slim white male with dark longish hair who is wearing comfortable clothing. He does have nystagmus, which is more intense than I am used to seeing from him. He is responding to the exhaustion he feels from having multiple psychogenic seizures in a day. His eye contact is good despite the nystagmus. He is calm and cooperative. His speech when he is not seizing is within normal rate, tone, and volume. He appears dysphoric. His affect is slightly constricted. His thought processes are normal. His thought content is free from delusions or hallucinations. He is not homicidal or suicidal. His insight is fair. His judgment is good. His impulse control is fair. He is alert and awake x3. He is of average to above average intelligence. DIAGNOSES: Henderson I: I will give him diagnosis of mood disorder, not otherwise specified and psychogenic seizures. Henderson II: cluster B traits. IMPRESSION: This is a 22-year-old male who is creative and thoughtful and is suffering from psychogenic seizures that he does not seem to have any great control over. He also seems to lack insight into their source and understanding what it means that they do not have an epileptic source. It might be interesting to reduce family influence over Gustavo. RECOMMENDATIONS: Lamictal can be started and the slowness of tapering could be useful to him and that he might be able to think about how he is slowly improving. Another possibility is to increase Latuda to 40 mg, because he is not good at tolerating medications that might be a task best left for his outpatient provider. Thank you for this interesting consult. It was nice to see Gustavo again. BRINA ZACARIAS, KEHINDE [id number]/[facility] #: [id number] ROSANNE
--- NOTE | 2017-09-15 20:21 | CONS ---
CC: Dr. Gonzalez; Dr. Londono * NEUROLOGY CONSULTATION: DATE OF CONSULT: 09/15/17 LOCATION: He is an inpatient. He is in room 411. REFERRING PHYSICIAN: Dr. Cortes. CHIEF COMPLAINT: Seizures. HISTORY OF PRESENT ILLNESS: Gustavo Chavez is a 22-year-old young man with a diagnosis of psychogenic nonepileptic seizures, who presented to the hospital yesterday with an increase in his seizure activity. He briefly responded to smelling salts in the emergency room, but continued to have convulsive like movements. I reviewed office records from our office. Dr. Parisa Gonzalez is his epileptologist. He had long-term video monitoring up in the [facility] where multiple episodes were documented to be nonepileptic. He also had an EEG on 05/16/17 where he had 2 different types of spells which were both nonepileptic. He has a history of psychiatric disease and was hospitalized in the mental health unit with suicidal ideations and hallucinations in October 2014. His only medication at home is CBD oil. PAST MEDICAL HISTORY: Notable for psychogenic nonepileptic spells and psychiatric disorder. 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 Gonzalez. He has a history of congenital pattern nystagmus. MEDICATIONS: At home consists of: 1. Latuda 20 mg p.o. daily. 2. Celebrex 100 mg p.o. b.i.d. 3. Vitamin D. 4. Promethazine 25 mg p.o. q.8 hours as needed. ALLERGIES: He is said to be allergic to ABILIFY with increased seizure activity , LATEX causing hives, VENLAFAXINE caused increased seizure activity, ALBUTEROL caused worsened breathing. He has several environmental allergies. PHYSICAL EXAMINATION: On examination, he has been afebrile, most recently temperature 97.8 orally. Blood pressure 122/56, heart rate 76 and regular. Respiratory rate 14, oxygen saturation is 98% on room air. Heart is in a regular rate and rhythm. There are no cervical bruits. Oral mucosa is moist and atraumatic. Throughout the visit, he exhibits intermittent stiffening of his limbs and jerking of all extremities where them fully extended. He talks during the episodes and also immediately talks after the episodes. He rolls his eyes up during some of the episodes and at other times, his eyes are crossed. Limb strength is good in all limbs and facial musculature is symmetric. Speech is clear in between episodes. Plantar responses are flexor bilaterally. Knee reflexes are symmetric. He occasionally exhibits [id number] head jerking movements. He carries on a conversation throughout this. His sister who is present holds his arms and says "he is about to have one." She then gets up and writes down the number of seizures that he has had on the white board at the foot of the hospital bed. He carries on a conversation throughout this. When asked of his concept of what psychogenic nonepileptic seizures is, he refused that diagnosis. He says he has physiological nonepileptic seizures. He says that are triggered by pain and not emotional stimuli and that is why the diagnosis is incorrect. DIAGNOSTIC STUDIES/LAB DATA: Laboratory data includes an MRI of the brain from 09/14/17 which are reviewed and looks like a completely normal brain MRI. This has been interpreted by Dr. Judd assuring mild maxillary sinus mucosal disease , but otherwise normal brain MRI. EEG from 05/16/17 as mentioned above where he had multiple episodes with no epileptiform activity. Laboratory data this admission is notable for an elevated white blood cell count yesterday at 12.2, otherwise normal CBC. Coags are notable for normal INR and PTT on 09/13/17. Blood gas yesterday in the emergency room showed an elevated venous pO2, a low venous pCO2. Creatinine kinase yesterday was normal at 84. Chemistry profile otherwise is unremarkable. He did have elevated lactic acid of 5.6 on 09/13/17 at 2300 hours, normal by 09/14/17 at 0300 hours, elevated again 09/14/17 at 0900 hours, normal again by 09/14/17. Urinalysis is normal. Toxicology screen positive for cannabinoids. IMPRESSION AND PLAN: Impression is that of a flare up of pretty severe psychogenic nonepileptic attacks. Gustavo does not appear to have good insight and his family seems to be feeding into his psychogenic attacks. Mental Health is going to see him in consultation. I do not certainly recommend anticonvulsants and Gustavo does not seem to have good insight, so I am not sure what the best way to get him out of the psycho is. I will discuss my impression with Dr. Cortes. [id number]/[facility] #: [id number] [facility] MEDICAL CENTERJhonathan
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
[2017-09-16] MEDS: HYDROcodone/ACETAMIN 5-325 MG* 1 TAB PO PRN ×4 (08:27→20:39)
[2017-09-16] MEDS: Cholecalciferol TAB* 1000 UNITS PO SCH (08:29)
[2017-09-16] MEDS: CELECOXIB 100 MG PO SCH ×2 (08:29→21:32)
--- NOTE | 2017-09-16 08:41 | PN ---
Subjective Date of Service: 09/16/17 Interval History: No overnight events reported. Gustavo reports feeling sore this morning. Headache that he was having yesterday is resolved. He complains of some mid- back pain. He expresses frustration about not understanding why this is happening to him. He experiences another episode of convulsions when I examine is back. He answers my questions during the convulsions and responds to my presence. Family History: Unchanged from Admission Social History: Unchanged from Admission Past Medical History: Unchanged from Admission Objective Active Medications: Hydrocodone Bitart/Acetaminophen ([place] 5-325 Tab*) 1 tab PO Q3H PRN PRN Reason: PAIN - MODERATE Last Admin: 09/16/17 08:27 Dose: 1 tab Celecoxib (Celebrex Cap*) 100 mg PO BID [facility] Last Admin: 09/16/17 08:29 Dose: 100 mg Cholecalciferol (Vitamin D Tab*) 1,000 units PO DAILY JEAN Last Admin: 09/16/17 08:29 Dose: 1,000 units Promethazine HCl (Phenergan Tab*) 25 mg PO Q8H PRN PRN Reason: NAUSEA Last Admin: 09/15/17 08:58 Dose: 25 mg Vital Signs - 8 hr 09/16/17 09/16/17 09/16/17 03:10 07:39 08:27 Temperature 97.7 F 98.0 F Pulse Rate 68 59 Respiratory 18 18 20 Rate Blood Pressure 100/50 100/55 (mmHg) O2 Sat by Pulse 100 99 Oximetry Oxygen Devices in Use Now: None Appearance: alert, young, no distress Eyes: No Scleral Icterus, - - nystagmus when he looks straight ahead Neck: NL Appearance and Movements; NL JVP Respiratory: Symmetrical Chest Expansion and Respiratory Effort, Clear to Auscultation Cardiovascular: NL Sounds; No Murmurs; No JVD, RRR Abdominal: NL Sounds; No Tenderness; No Distention Lymphatic: No Cervical Adenopathy Extremities: No Edema Skin: No Rash or Ulcers Neurological: - - back arching and diffuse convulsing and rigidity noted x approximately 30 seconds. resolves spontaneously and answers questions. Result Diagrams: 09/13/17 23:41 09/14/17 09:03 Additional Lab and Data: Lab Results 09/13/17 09/13/17 09/13/17 Range/Units 23:41 23:41 23:41 WBC 12.2 H (3.5-10.8) 10^3/ul RBC 5.20 (4.0-5.4) 10^6/ul Hgb 16.2 (14.0-18.0) g/dl Hct 47 (42-52) % MCV 90 (80-94) fL MCH 31 (27-31) pg MCHC 35 (31-36) g/dl RDW 13 (10.5-15) % Plt Count 242 (150-450) 10^3/ul MPV 8.3 (7.4-10.4) um3 Neut % (Auto) 54.2 (38-83) % Lymph % (Auto) 35.4 (25-47) % [place] % (Auto) 6.8 (0-7) % Eos % (Auto) 3.1 (0-6) % Baso % (Auto) 0.5 (0-2) % Absolute Neuts (auto) 6.6 (1.5-7.7) 10^3/ul Absolute Lymphs (auto) 4.3 (1.0-4.8) 10^3/ul Absolute Monos (auto) 0.8 (0-0.8) 10^3/ul Absolute Eos (auto) 0.4 (0-0.6) 10^3/ul Absolute Basos (auto) 0.1 (0-0.2) 10^3/ul Absolute Nucleated RBC 0 10^3/ul Nucleated RBC % 0.1 INR (Anticoag Therapy) (0.77-1.02) APTT (26.0-36.3) seconds Sodium 139 (139-145) mmol/L Potassium TNP Chloride 102 (101-111) mmol/L Carbon Dioxide 23 (22-32) mmol/L Anion Gap 14 H (2-11) mmol/L BUN 10 (6-24) mg/dL Creatinine 1.24 H (0.67-1.17) mg/dL Est GFR ( Amer) 95.6 (>60) Est GFR (Non-Af Amer) 74.3 (>60) BUN/Creatinine Ratio 8.1 (8-20) Glucose 86 (70-100) mg/dL Lactic Acid 5.6 H* (0.5-2.0) mmol/L Calcium 9.7 (8.6-10.3) mg/dL Total Bilirubin 0.40 (0.2-1.0) mg/dL AST TNP ALT 22 (7-52) U/L Alkaline Phosphatase 82 (34-104) U/L Total Creatine Kinase 84 (10-223) U/L C-Reactive Protein 1.59 (< 5.00) mg/L Total Protein 7.4 (6.4-8.9) g/dL Albumin 4.5 (3.2-5.2) g/dL Globulin 2.9 (2-4) g/dL Albumin/Globulin Ratio 1.6 (1-3) TSH 3.37 (0.34-5.60) mcIU/mL Urine Color Urine Appearance Urine pH (5-9) Ur Specific [place] (1.010-1.030) Urine Protein (Negative) Urine Ketones (Negative) Urine Blood (Negative) Urine Nitrate (Negative) Urine Bilirubin (Negative) Urine Urobilinogen (Negative) Ur Leukocyte Esterase (Negative) Urine Glucose (Negative) 09/13/17 09/14/17 09/14/17 Range/Units 23:41 03:01 03:04 WBC (3.5-10.8) 10^3/ul RBC (4.0-5.4) 10^6/ul Hgb (14.0-18.0) g/dl Hct (42-52) % MCV (80-94) fL MCH (27-31) pg MCHC (31-36) g/dl RDW (10.5-15) % Plt Count (150-450) 10^3/ul MPV (7.4-10.4) um3 Neut % (Auto) (38-83) % Lymph % (Auto) (25-47) % [place] % (Auto) (0-7) % Eos % (Auto) (0-6) % Baso % (Auto) (0-2) % Absolute Neuts (auto) (1.5-7.7) 10^3/ul Absolute Lymphs (auto) (1.0-4.8) 10^3/ul Absolute Monos (auto) (0-0.8) 10^3/ul Absolute Eos (auto) (0-0.6) 10^3/ul Absolute Basos (auto) (0-0.2) 10^3/ul Absolute Nucleated RBC 10^3/ul Nucleated RBC % INR (Anticoag Therapy) 0.92 (0.77-1.02) APTT 31.3 (26.0-36.3) seconds Sodium (139-145) mmol/L Potassium Chloride (101-111) mmol/L Carbon Dioxide (22-32) mmol/L Anion Gap (2-11) mmol/L BUN (6-24) mg/dL Creatinine (0.67-1.17) mg/dL Est GFR ( Amer) (>60) Est GFR (Non-Af Amer) (>60) BUN/Creatinine Ratio (8-20) Glucose (70-100) mg/dL Lactic Acid 1.3 (0.5-2.0) mmol/L Calcium (8.6-10.3) mg/dL Total Bilirubin (0.2-1.0) mg/dL AST ALT (7-52) U/L Alkaline Phosphatase (34-104) U/L Total Creatine Kinase (10-223) U/L C-Reactive Protein (< 5.00) mg/L Total Protein (6.4-8.9) g/dL Albumin (3.2-5.2) g/dL Globulin (2-4) g/dL Albumin/Globulin Ratio (1-3) TSH (0.34-5.60) mcIU/mL Urine Color Yellow Urine Appearance Clear Urine pH 7.0 (5-9) Ur Specific [place] 1.013 (1.010-1.030) Urine Protein Negative (Negative) Urine Ketones Negative (Negative) Urine Blood Negative (Negative) Urine Nitrate Negative (Negative) Urine Bilirubin Negative (Negative) Urine Urobilinogen Negative (Negative) Ur Leukocyte Esterase Negative (Negative) Urine Glucose Negative (Negative) Assess/Plan/Problems-Billing Assessment: 22 yo man with history of psychogenic nonepileptic attacks admitted with increased frequency of attacks - Patient Problems (1) Convulsion, non-epileptic Current Visit: No Status: Acute Comment: Evaluated by psychiatry and neurology, confirmed diagnoses of psychogenic non-epileptiform attacks and recommended supportive care. I reviewed his last EEG report here done in May. No anti-epileptics indiated. Needs psychotherapy. 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
[2017-09-16] MEDS: Lurasidone(*) 20 MG TAB PO SCH (18:28)
[2017-09-17] MEDS: HYDROcodone/ACETAMIN 5-325 MG* 1 TAB PO PRN ×3 (08:04→19:44)
[2017-09-17] MEDS: CELECOXIB 100 MG PO SCH ×2 (08:05→19:45)
[2017-09-17] MEDS: Cholecalciferol TAB* 1000 UNITS PO SCH (08:05)
--- NOTE | 2017-09-17 11:31 | CONSULT ---
Identification - Patient Identification Reason for Psychiatric Consultation: Incapacitating Symptoms -: Patient is a 22 year old, M admitted on 09/16/17. - MHU Identification Employment Status: Disabled Hx Psychiatric Hospitalization: No History - Objective HPI: Gustavo is seen for follow up by the [facility] team. He is alone in his room watching television. The first thing I note is that he has prominent nystagmus. He is calm and cooperative and does not display any seizure activity during our roughly 15 minutes together. Gustavo's nurse, Samia, notes prior to my visit that Gustavo's episodes seem somewhat improved today in terms of frequency and amplitude. The patient is talkative and open, discussing his difficulties procuring medical cannabis, which he reports marked benefit from for both pain and non-epileptic seizures, and his existential crisis related to his parents moving down to [place] for his father's new job. The patient continues to deny SI or HI and does not feel transfer to the [facility] would be helpful. "I'm afraid of talking to the other patients." Exam Appearance: Well Developed/Nourished Hygiene: Normal Grooming: Fairly Well Kept Psychomotor Activities: Normal Exhibits Abnormal Movement: No Attitude and Relatedness: Cooperative Eye Contact: Good - Speech Quality: Unpressured Latencies: Normal Quantity: Appropriate Patient's Decription of Mood: "Okay" Observed Affect: Good Affect Consistent with: Euthymia Patient's Thought Process: Coherent Thought Content: No Passive Wish, No Suicidal Planning, No Homicidal Ideation, No Paranoid Ideation Experiencing Hallucinations: No, Sensorium is Clear Type of Hallucinations: Visual: No, Auditory: No, Command: No Level of Consciousness: Alert Orientation: Yes Intact, Yes Orientated to Time, Yes Orientated to Place, Yes Orientated to Person Impulse Control: Tenuous Insight and Judgement: Fair Impression - Impression Clinical Impression: 22 y.o. single, white male with a history of conversion disorder presents to the hospital with worsening non-epileptic seizures and increased sensations of pain presumably related to the news that his parents will be moving to [place] to pursue employment for his father. Inpatient DSM-V Dx: F44.4 Merits Inpatient Hospitalization: No Plan - Treatment Plan Treatment Plan: The patient has been resumed by the primary team on nightly lurasidone 20mg, which, according to the patient, he takes for visual hallucinations. His conversion symptoms are paramount at this time and can be understood as an unconscious attempt to manage the stress of his changing family support situation by inhabiting the sick role. An empathic and reassuring approach is indicated and already appears to be reducing his symptom burden. Outpatient services are already in place at [facility]. Psychiatry will continue to follow. Continued Medication Management: Continue Outpt Medication Medications: Current Medications Hydrocodone Bitart/Acetaminophen ([place] 5-325 Tab*) 1 tab PO Q3H PRN PRN Reason: PAIN - MODERATE Last Admin: 09/17/17 08:04 Dose: 1 tab Celecoxib (Celebrex Cap*) 100 mg PO BID JEAN Last Admin: 09/17/17 08:05 Dose: 100 mg Cholecalciferol (Vitamin D Tab*) 1,000 units PO DAILY JEAN Last Admin: 09/17/17 08:05 Dose: 1,000 units Lurasidone HCl (Latuda) 20 mg PO 1700 JEAN Last Admin: 09/16/17 18:28 Dose: 20 mg Promethazine HCl (Phenergan Tab*) 25 mg PO Q8H PRN PRN Reason: NAUSEA Last Admin: 09/15/17 08:58 Dose: 25 mg - Discharge Plan Discharge Plan: Outpatient Follow Up Outpatient Program: [facility]
--- NOTE | 2017-09-17 13:45 | PN ---
Subjective Date of Service: 09/17/17 Interval History: Gustavo feels he is getting better with the supportive care he has been receiving. He continues to complain of diffuse aches and pains, but says they are not much different than pains he has had since about the 7th grade. His grandfather is with him this morning. Gustavo denies any bowel or bladder problems, he has good control over both. He walked to the hallway with PT yesterday. He reports poor appetite but no nausea, vomiting, constipation, or diarrhea. Family History: Unchanged from Admission Social History: Unchanged from Admission Past Medical History: Unchanged from Admission Objective Active Medications: Hydrocodone Bitart/Acetaminophen ([place] 5-325 Tab*) 1 tab PO Q3H PRN PRN Reason: PAIN - MODERATE Last Admin: 09/17/17 08:04 Dose: 1 tab Celecoxib (Celebrex Cap*) 100 mg PO BID [facility] Last Admin: 09/17/17 08:05 Dose: 100 mg Cholecalciferol (Vitamin D Tab*) 1,000 units PO DAILY [facility] Last Admin: 09/17/17 08:05 Dose: 1,000 units Lurasidone HCl (Latuda) 20 mg PO 1700 [facility] Last Admin: 09/16/17 18:28 Dose: 20 mg Promethazine HCl (Phenergan Tab*) 25 mg PO Q8H PRN PRN Reason: NAUSEA Last Admin: 09/15/17 08:58 Dose: 25 mg Vital Signs - 8 hr 09/17/17 08:04 Respiratory 20 Rate Oxygen Devices in Use Now: None Appearance: alert, young, no distress Eyes: No Scleral Icterus Ears/Nose/Mouth/Throat: - - gingival hypertrophy Neck: NL Appearance and Movements; NL JVP Respiratory: Symmetrical Chest Expansion and Respiratory Effort Extremities: - - strength 5/5 b/l upper and lower extremities. negative straight leg raise test. Result Diagrams: 09/13/17 23:41 09/14/17 09:03 Additional Lab and Data: Lab Results 09/13/17 09/13/17 09/13/17 Range/Units 23:41 23:41 23:41 WBC 12.2 H (3.5-10.8) 10^3/ul RBC 5.20 (4.0-5.4) 10^6/ul Hgb 16.2 (14.0-18.0) g/dl Hct 47 (42-52) % MCV 90 (80-94) fL MCH 31 (27-31) pg MCHC 35 (31-36) g/dl RDW 13 (10.5-15) % Plt Count 242 (150-450) 10^3/ul MPV 8.3 (7.4-10.4) um3 Neut % (Auto) 54.2 (38-83) % Lymph % (Auto) 35.4 (25-47) % [place] % (Auto) 6.8 (0-7) % Eos % (Auto) 3.1 (0-6) % Baso % (Auto) 0.5 (0-2) % Absolute Neuts (auto) 6.6 (1.5-7.7) 10^3/ul Absolute Lymphs (auto) 4.3 (1.0-4.8) 10^3/ul Absolute Monos (auto) 0.8 (0-0.8) 10^3/ul Absolute Eos (auto) 0.4 (0-0.6) 10^3/ul Absolute Basos (auto) 0.1 (0-0.2) 10^3/ul Absolute Nucleated RBC 0 10^3/ul Nucleated RBC % 0.1 INR (Anticoag Therapy) (0.77-1.02) APTT (26.0-36.3) seconds Sodium 139 (139-145) mmol/L Potassium TNP Chloride 102 (101-111) mmol/L Carbon Dioxide 23 (22-32) mmol/L Anion Gap 14 H (2-11) mmol/L BUN 10 (6-24) mg/dL Creatinine 1.24 H (0.67-1.17) mg/dL Est GFR ( Amer) 95.6 (>60) Est GFR (Non-Af Amer) 74.3 (>60) BUN/Creatinine Ratio 8.1 (8-20) Glucose 86 (70-100) mg/dL Lactic Acid 5.6 H* (0.5-2.0) mmol/L Calcium 9.7 (8.6-10.3) mg/dL Total Bilirubin 0.40 (0.2-1.0) mg/dL AST TNP ALT 22 (7-52) U/L Alkaline Phosphatase 82 (34-104) U/L Total Creatine Kinase 84 (10-223) U/L C-Reactive Protein 1.59 (< 5.00) mg/L Total Protein 7.4 (6.4-8.9) g/dL Albumin 4.5 (3.2-5.2) g/dL Globulin 2.9 (2-4) g/dL Albumin/Globulin Ratio 1.6 (1-3) TSH 3.37 (0.34-5.60) mcIU/mL Urine Color Urine Appearance Urine pH (5-9) Ur Specific [place] (1.010-1.030) Urine Protein (Negative) Urine Ketones (Negative) Urine Blood (Negative) Urine Nitrate (Negative) Urine Bilirubin (Negative) Urine Urobilinogen (Negative) Ur Leukocyte Esterase (Negative) Urine Glucose (Negative) 09/13/17 09/14/17 09/14/17 Range/Units 23:41 03:01 03:04 WBC (3.5-10.8) 10^3/ul RBC (4.0-5.4) 10^6/ul Hgb (14.0-18.0) g/dl Hct (42-52) % MCV (80-94) fL MCH (27-31) pg MCHC (31-36) g/dl RDW (10.5-15) % Plt Count (150-450) 10^3/ul MPV (7.4-10.4) um3 Neut % (Auto) (38-83) % Lymph % (Auto) (25-47) % [place] % (Auto) (0-7) % Eos % (Auto) (0-6) % Baso % (Auto) (0-2) % Absolute Neuts (auto) (1.5-7.7) 10^3/ul Absolute Lymphs (auto) (1.0-4.8) 10^3/ul Absolute Monos (auto) (0-0.8) 10^3/ul Absolute Eos (auto) (0-0.6) 10^3/ul Absolute Basos (auto) (0-0.2) 10^3/ul Absolute Nucleated RBC 10^3/ul Nucleated RBC % INR (Anticoag Therapy) 0.92 (0.77-1.02) APTT 31.3 (26.0-36.3) seconds Sodium (139-145) mmol/L Potassium Chloride (101-111) mmol/L Carbon Dioxide (22-32) mmol/L Anion Gap (2-11) mmol/L BUN (6-24) mg/dL Creatinine (0.67-1.17) mg/dL Est GFR ( Amer) (>60) Est GFR (Non-Af Amer) (>60) BUN/Creatinine Ratio (8-20) Glucose (70-100) mg/dL Lactic Acid 1.3 (0.5-2.0) mmol/L Calcium (8.6-10.3) mg/dL Total Bilirubin (0.2-1.0) mg/dL AST ALT (7-52) U/L Alkaline Phosphatase (34-104) U/L Total Creatine Kinase (10-223) U/L C-Reactive Protein (< 5.00) mg/L Total Protein (6.4-8.9) g/dL Albumin (3.2-5.2) g/dL Globulin (2-4) g/dL Albumin/Globulin Ratio (1-3) TSH (0.34-5.60) mcIU/mL Urine Color Yellow Urine Appearance Clear Urine pH 7.0 (5-9) Ur Specific [place] 1.013 (1.010-1.030) Urine Protein Negative (Negative) Urine Ketones Negative (Negative) Urine Blood Negative (Negative) Urine Nitrate Negative (Negative) Urine Bilirubin Negative (Negative) Urine Urobilinogen Negative (Negative) Ur Leukocyte Esterase Negative (Negative) Urine Glucose Negative (Negative) Assess/Plan/Problems-Billing Assessment: 22 yo man with history of psychogenic nonepileptic attacks admitted with increased frequency of attacks - Patient Problems (1) Convulsion, non-epileptic Current Visit: No Status: Acute Comment: Evaluated by psychiatry and neurology, confirmed diagnoses of psychogenic non-epileptiform attacks and recommended supportive care. I reviewed his last EEG report here done in May. No anti-epileptics indiated. Needs psychotherapy. Appreciate Dr. Kenny's input and interview revealing the current personal stressors that may be elliciting this "flare" Neither the patient nor inpatient psychiatric team feel there is benefit for inpatient psychiatric admission. Continue supportive care. 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
--- NOTE | 2017-09-17 15:35 | PN ---
Hospitalist Progress Note Date of Service: 09/17/17 I had a lengthy discussion with Gustavo's mother and grandmother this afternoon. They express concern about what has been causing this change in his patterns of PNES. They want him to have a new EEG, an MRI of his spine, and "any other testing we can do" while he is admitted. They are sure that the most recent EEG done in May was incorrect because the stickers were not on his head correctly because he has a sweaty scalp. I agree with their concern about chronic pain contributing to his attacks, especially given his history of being bullied as a child. He has tried venlafaxine which caused him side effects he couldn't tolerate, and he has also tried amitriptyline and gabapentin which gave him no relief. His symptoms do not fit a spinal level, so I do not think an MRI is indicated at this time.
[2017-09-17] MEDS: Promethazine TAB* 25 MG PO PRN (18:01)
[2017-09-17] MEDS: Lurasidone(*) 20 MG TAB PO SCH (18:01)
[2017-09-18] MEDS: CELECOXIB 100 MG PO SCH ×2 (08:38→20:24)
[2017-09-18] MEDS: HYDROcodone/ACETAMIN 5-325 MG* 1 TAB PO PRN ×4 (08:39→20:21)
[2017-09-18] MEDS: Cholecalciferol TAB* 1000 UNITS PO SCH (08:50)
--- NOTE | 2017-09-18 13:26 | PN ---
Subjective Date of Service: 09/18/17 Interval History: patient reports he has had "less seizures today" but reports he continues to have intermittent seizures and states these are exacerbated by pain. He reports back pain and thinks maybe it is worse from the falls he suffered. He states that his pain has improved since he has been admitted but is not resolved. Denies numbness/tingling. No loss of bowel or bladder. His grandmother is at the bedside answering for the patient and talking over me. She appears very guarded and defensive. I did sit and listen to her, however whenever I spoke she would interrupt me not allowing me to answer. Family History: Unchanged from Admission Social History: Unchanged from Admission Past Medical History: Unchanged from Admission Objective Active Medications: Hydrocodone Bitart/Acetaminophen ([place] 5-325 Tab*) 1 tab PO Q3H PRN PRN Reason: PAIN - MODERATE Last Admin: 09/18/17 12:09 Dose: 1 tab Celecoxib (Celebrex Cap*) 100 mg PO BID [facility] Last Admin: 09/18/17 08:38 Dose: 100 mg Cholecalciferol (Vitamin D Tab*) 1,000 units PO DAILY [facility] Last Admin: 09/18/17 08:50 Dose: 1,000 units Lurasidone HCl (Latuda) 20 mg PO 1700 [facility] Last Admin: 09/17/17 18:01 Dose: 20 mg Promethazine HCl (Phenergan Tab*) 25 mg PO Q8H PRN PRN Reason: NAUSEA Last Admin: 09/17/17 18:01 Dose: 25 mg Vital Signs - 8 hr 09/18/17 09/18/17 09/18/17 07:43 08:39 08:52 Temperature 98.0 F Pulse Rate 63 Respiratory 16 20 20 Rate Blood Pressure 111/67 (mmHg) O2 Sat by Pulse 95 Oximetry 09/18/17 09/18/17 09/18/17 11:00 11:23 12:09 Temperature 98.1 F Pulse Rate 74 Respiratory 16 18 16 Rate Blood Pressure 116/69 (mmHg) O2 Sat by Pulse 98 Oximetry Oxygen Devices in Use Now: None Appearance: 22 yo male well developed A+O x3 Eyes: No Scleral Icterus, PERRLA Ears/Nose/Mouth/Throat: NL Teeth, Lips, Gums, Mucous Membranes Moist Neck: NL Appearance and Movements; NL JVP Respiratory: Symmetrical Chest Expansion and Respiratory Effort, Clear to Auscultation Cardiovascular: NL Sounds; No Murmurs; No JVD, RRR, No Edema Abdominal: NL Sounds; No Tenderness; No Distention, No Hepatosplenomegaly Lymphatic: No Cervical Adenopathy Extremities: No Edema, No Clubbing, Cyanosis Skin: No Rash or Ulcers, No Nodules or Sclerosis Neurological: Alert and Oriented x 3, NL Sensation, NL Muscle Strength and Tone , - - no focal deficits noted Lines/Tubes/Other Access: Clean, Dry and Intact Peripheral IV Nutrition: Taking PO's Result Diagrams: 09/13/17 23:41 09/14/17 09:03 Additional Lab and Data: Lab Results 09/13/17 09/13/17 09/13/17 Range/Units 23:41 23:41 23:41 WBC 12.2 H (3.5-10.8) 10^3/ul RBC 5.20 (4.0-5.4) 10^6/ul Hgb 16.2 (14.0-18.0) g/dl Hct 47 (42-52) % MCV 90 (80-94) fL MCH 31 (27-31) pg MCHC 35 (31-36) g/dl RDW 13 (10.5-15) % Plt Count 242 (150-450) 10^3/ul MPV 8.3 (7.4-10.4) um3 Neut % (Auto) 54.2 (38-83) % Lymph % (Auto) 35.4 (25-47) % [place] % (Auto) 6.8 (0-7) % Eos % (Auto) 3.1 (0-6) % Baso % (Auto) 0.5 (0-2) % Absolute Neuts (auto) 6.6 (1.5-7.7) 10^3/ul Absolute Lymphs (auto) 4.3 (1.0-4.8) 10^3/ul Absolute Monos (auto) 0.8 (0-0.8) 10^3/ul Absolute Eos (auto) 0.4 (0-0.6) 10^3/ul Absolute Basos (auto) 0.1 (0-0.2) 10^3/ul Absolute Nucleated RBC 0 10^3/ul Nucleated RBC % 0.1 INR (Anticoag Therapy) (0.77-1.02) APTT (26.0-36.3) seconds Sodium 139 (139-145) mmol/L Potassium TNP Chloride 102 (101-111) mmol/L Carbon Dioxide 23 (22-32) mmol/L Anion Gap 14 H (2-11) mmol/L BUN 10 (6-24) mg/dL Creatinine 1.24 H (0.67-1.17) mg/dL Est GFR ( Amer) 95.6 (>60) Est GFR (Non-Af Amer) 74.3 (>60) BUN/Creatinine Ratio 8.1 (8-20) Glucose 86 (70-100) mg/dL Lactic Acid 5.6 H* (0.5-2.0) mmol/L Calcium 9.7 (8.6-10.3) mg/dL Total Bilirubin 0.40 (0.2-1.0) mg/dL AST TNP ALT 22 (7-52) U/L Alkaline Phosphatase 82 (34-104) U/L Total Creatine Kinase 84 (10-223) U/L C-Reactive Protein 1.59 (< 5.00) mg/L Total Protein 7.4 (6.4-8.9) g/dL Albumin 4.5 (3.2-5.2) g/dL Globulin 2.9 (2-4) g/dL Albumin/Globulin Ratio 1.6 (1-3) TSH 3.37 (0.34-5.60) mcIU/mL Urine Color Urine Appearance Urine pH (5-9) Ur Specific [place] (1.010-1.030) Urine Protein (Negative) Urine Ketones (Negative) Urine Blood (Negative) Urine Nitrate (Negative) Urine Bilirubin (Negative) Urine Urobilinogen (Negative) Ur Leukocyte Esterase (Negative) Urine Glucose (Negative) 09/13/17 09/14/17 09/14/17 Range/Units 23:41 03:01 03:04 WBC (3.5-10.8) 10^3/ul RBC (4.0-5.4) 10^6/ul Hgb (14.0-18.0) g/dl Hct (42-52) % MCV (80-94) fL MCH (27-31) pg MCHC (31-36) g/dl RDW (10.5-15) % Plt Count (150-450) 10^3/ul MPV (7.4-10.4) um3 Neut % (Auto) (38-83) % Lymph % (Auto) (25-47) % [place] % (Auto) (0-7) % Eos % (Auto) (0-6) % Baso % (Auto) (0-2) % Absolute Neuts (auto) (1.5-7.7) 10^3/ul Absolute Lymphs (auto) (1.0-4.8) 10^3/ul Absolute Monos (auto) (0-0.8) 10^3/ul Absolute Eos (auto) (0-0.6) 10^3/ul Absolute Basos (auto) (0-0.2) 10^3/ul Absolute Nucleated RBC 10^3/ul Nucleated RBC % INR (Anticoag Therapy) 0.92 (0.77-1.02) APTT 31.3 (26.0-36.3) seconds Sodium (139-145) mmol/L Potassium Chloride (101-111) mmol/L Carbon Dioxide (22-32) mmol/L Anion Gap (2-11) mmol/L BUN (6-24) mg/dL Creatinine (0.67-1.17) mg/dL Est GFR ( Amer) (>60) Est GFR (Non-Af Amer) (>60) BUN/Creatinine Ratio (8-20) Glucose (70-100) mg/dL Lactic Acid 1.3 (0.5-2.0) mmol/L Calcium (8.6-10.3) mg/dL Total Bilirubin (0.2-1.0) mg/dL AST ALT (7-52) U/L Alkaline Phosphatase (34-104) U/L Total Creatine Kinase (10-223) U/L C-Reactive Protein (< 5.00) mg/L Total Protein (6.4-8.9) g/dL Albumin (3.2-5.2) g/dL Globulin (2-4) g/dL Albumin/Globulin Ratio (1-3) TSH (0.34-5.60) mcIU/mL Urine Color Yellow Urine Appearance Clear Urine pH 7.0 (5-9) Ur Specific [place] 1.013 (1.010-1.030) Urine Protein Negative (Negative) Urine Ketones Negative (Negative) Urine Blood Negative (Negative) Urine Nitrate Negative (Negative) Urine Bilirubin Negative (Negative) Urine Urobilinogen Negative (Negative) Ur Leukocyte Esterase Negative (Negative) Urine Glucose Negative (Negative) Assess/Plan/Problems-Billing Assessment: 22 yo man with history of psychogenic nonepileptic attacks admitted with increased frequency of attacks - Patient Problems (1) Convulsion, non-epileptic Comment: Evaluated by psychiatry and neurology, confirmed diagnoses of psychogenic non-epileptiform attacks and recommended supportive care. Last EEG report here done in May showing no seizure activity. Appreciate Dr. Gonzalez coming in to see patient today - she confirms her initial diagnose of PNE. No anti-epileptics indiated. Needs psychotherapy. Appreciate Dr. Kenny's input and interview revealing the current personal stressors that may be elliciting this "flare" Neither the patient nor inpatient psychiatric team feel there is benefit for inpatient psychiatric admission. Continue supportive care. (2) Chronic pain Comment: - continue norco prn. - will obtain spinal xrays as recommended by Dr. Gonzalez (3) Congenital nystagmus (4) Generalized anxiety disorder Comment: continue latuda (5) Hypermobility arthralgia Comment: - noted - followed by Dr. Balderas (6) DVT prophylaxis Status and Disposition: inpatient. Home at discharge.
[2017-09-18] MEDS: Lurasidone(*) 20 MG TAB PO SCH (16:26)
--- NOTE | 2017-09-18 19:36 | RAD ---
INDICATION: Fall. Neck pain COMPARISON: None TECHNIQUE: AP and lateral views were acquired FINDINGS: Bones: There are no acute bony findings. There are no significant osteoarthritic findings. Craniocervical junction: The odontoid and atlantodental interval are normal. Alignment: Normal Disc spaces: The disc spaces are well-maintained Soft tissues: The prevertebral soft tissues are normal. IMPRESSION: NEGATIVE EXAMINATION.
--- NOTE | 2017-09-18 19:36 | RAD ---
INDICATION: Back pain. Fall. COMPARISON: None TECHNIQUE: AP and lateral views were obtained . FINDINGS: Bones: There are no acute bony findings. There are no significant osteoarthritic findings. Alignment: Normal Disc spaces: The disc spaces are well-maintained Soft tissues: There are no soft tissue abnormalities. IMPRESSION: NEGATIVE EXAMINATION.
--- NOTE | 2017-09-18 19:37 | RAD ---
INDICATION: Back pain. Fall. COMPARISON: None TECHNIQUE: Routine 2 view imaging was performed FINDINGS: Bones: There are no acute bony findings. There are no significant osteoarthritic findings. Alignment: There is mild kyphosis Disc spaces: The disc spaces are well-maintained Soft tissues: There are no soft tissue abnormalities. IMPRESSION: MILD KYPHOSIS. NO ACUTE FINDINGS.
--- NOTE | 2017-09-18 19:37 | PN ---
Subjective - Subjective Subjective: Psychiatric Attending Progress Note: I came by this AM to see Jean Claude. At that time his mother and grandmother were at the bedside along with nurse. soon after entering room, jean claude began to shake all four extremities with considerable force. While this occurred his mother and grandmother were making various comments such as "see this is what he gets" or "its starting again". Mother and grandmother then pointed out the number of episodes he had had daily. His mother requested that I return. Of note jean claude was completely conscious during the movements. extremities in extension during the shaking episode. When it stopped, mother suggested I return as he would not be able to talk after the episode. Jean Claude nodded that he agreed I should return later. Upon returning at 6 pm. jean claude's mother was alone with him. She made various comments which indicated to me that she was highly invested in Jean Claude being a patient and maintaing the sick role. Mother told me that the family was moving. When I made the suggestion that Jean Claude might want to move with his family, his mother became quite agitated and began to give reasons why he would have to stay here with grandmotehr until she could properly set up everything that Jean Claude would need This included a walker. Jean Claude agreed with his mother. The two were higly focused on Jean Claude's seizures and pain. When asked about the nature of his illness, mother maintained that although doctors were calling them psychogenic, she was quite sure that pain was the cause. I did not have a chance to speak with mother alone in order to further challenge the way she interacts with Jean Claude in terms of reinforcing his symptoms. 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 family move is main stressor here and I will explore Jean Claude's wishes in terms of where he wishes to live as this might help decrese his level of symptoms as he is likely ambivalent and confused about where he should live (with GM near his child in [place] or with family in [place]) if functioning deteriorates so much that he continues to return to hospital, state psychiatric referral may be most viable option. Assessment - Assessment DSM-V Dx: F44.4 Plan - Plan Treatment Plan: Name: JEAN CLAUDE STACK Birthdate: 1995 [id number] Medications: Current Medications Hydrocodone Bitart/Acetaminophen ([place] 5-325 Tab*) 1 tab PO Q3H PRN PRN Reason: PAIN - MODERATE Last Admin: 09/18/17 16:26 Dose: 1 tab Celecoxib (Celebrex Cap*) 100 mg PO BID JEAN Last Admin: 09/18/17 08:38 Dose: 100 mg Cholecalciferol (Vitamin D Tab*) 1,000 units PO DAILY JEAN Last Admin: 09/18/17 08:50 Dose: 1,000 units Lurasidone HCl (Latuda) 20 mg PO 1700 JEAN Last Admin: 09/18/17 16:26 Dose: 20 mg Promethazine HCl (Phenergan Tab*) 25 mg PO Q8H PRN PRN Reason: NAUSEA Last Admin: 09/17/17 18:01 Dose: 25 mg
[2017-09-19 07:25] VITALS: BP 113/55
[2017-09-19] MEDS: HYDROcodone/ACETAMIN 5-325 MG* 1 TAB PO PRN ×3 (08:00→16:43)
[2017-09-19] MEDS: Cholecalciferol TAB* 1000 UNITS PO SCH (08:00)
[2017-09-19] MEDS: CELECOXIB 100 MG PO SCH (08:01)
--- NOTE | 2017-09-19 08:29 | PN ---
PROGRESS NOTE: DATE OF FOLLOWUP: 09/18/17 HISTORY OF PRESENT ILLNESS: I came in to see Gustavo at the request of his family as well as the hospitalist group. He is well known me from my outpatient practice, where I follow him for nonepileptic attacks. As documented in Dr. Jamil's consultation note, he has had change in the appearance of his attacks overtime and most recently was brought in last week with an increase in his events, which his mother and grandmother say differ in their characteristics from those which he has experienced in the past. In particular, of concern to his mother are some different eye movements where she states the right eye deviates inward while the left eye does not move. He has a history of congenital nystagmus but she indicates that this is different and that his eyes are dysconjugate when this occurs. In addition, his seizure-like events have changed in the sense that his hands and arms will flex up near his chin and his wrists flex downward with his hands in a fist. He has had some very violent shaking with these events so much so that his lactate has risen. He has had numerous events since he was admitted, but they have been decreasing in frequency over the past several days. Gustavo indicates that his events are triggered by a pain that shoots up his spine and into the back of his head and sometimes into his scientology as well. He is concerned about the possibility of some kind of trauma to his spine, because he has had several falls where he has landed in awkward positions. He did have an MRI scan of his brain upon admission, but has not had any other imaging at this point aside from a brain CT as well. He has been seen by Psychiatry on a few occasions, most recently by Dr. Kenny yesterday. In Dr. Kenny's note, it is documented that Gustavo's mother and father are going to be moving to [place], because Gustavo's dad lost his job at the beginning of this year. Gustavo says that this is not a significant stressor because he lives with his grandmother, but he certainly does get a significant amount of support from his parents. It sounds like he is hoping to eventually join them in [place] but is concerned about not having access to the specialists that he may need. He has also attempted to get medical marijuana, but has had difficulty with his card because he switched providers and has not been able to do so yet, but feels that marijuana does help his pain significantly which in turn helps his seizure-like events. I was asked to see Gustavo to weigh in on whether any further workup is necessary or make treatment suggestions. MEDICATIONS: 1. [place] 5/325 one tablet q.3 hours p.r.n., last given at 1626. 2. Celebrex 100 mg twice daily. 3. Vitamin D 1000 units daily. 4. Latuda 20 mg daily. 5. Phenergan 25 mg q.8 p.r.n. PHYSICAL EXAMINATION: Vital Signs: Temperature 97.7, blood pressure 113/72, heart rate 86, oxygen saturation 98% on room air. Gustavo was not formally examined today as the entire 45-minute visit was spent in counseling and education. He did attempt to show me where the pain is in his spine and just putting extremely light pressure on his skin causes him pain, which is out of proportion for the stimulus applied. Otherwise, he was noted to intermittently wince in pain at times, while at other times when engaged in conversation, he seemed to be able to move easily including his neck and his upper extremities. He did remain seated in bed the whole time and when switching his position groans in pain. DIAGNOSTIC STUDIES/LAB DATA: No recent laboratory data has been collected since 09/14/17. He had a lactate of 3.1 at 9 a.m., but by 1700, it was 0.8. Urinalysis was negative. His urine toxicology was positive for cannabinoids and otherwise negative. His brain MRI was unremarkable. IMPRESSION AND PLAN: Gustavo Chavez is a 22-year-old man with a history of psychiatric illness as well as psychogenic nonepileptic attacks, who has now been admitted to the hospital with an increase and apparent change in the character of his events. I reviewed a still photo that his grandmother had of his apparent abnormal eye movements, but to me this appeared to be conjugate movement of his eyes to the left with the right eye being deviated inward. His mother is working on editing some videos for me to review. I spent a great deal of time discussing again the nature of conversion disorder with his grandmother and his mother as well as Gustavo. I think, while they have good intentions, the excessive analyzation of Gustavo's symptoms, the repeated search for an organic cause, and the amount of attention that is devoted to Gustavo when he begins to have increased events are all counterproductive to his managing his condition and eventually getting better. I do not want to pursue any significant workup, but did agree to recommend x-rays, plain films of his spine given that he has had some falls and complaints of different type of pain since then. Gustavo was appreciative of this as were his mother and grandmother. Aside from that, I think the focus needs to be on symptom management and I reiterated to Gustavo that I do not think an organic cause for his chronic pain is going to be discovered, but we need to try to focus on how to manage his pain better. One thought is that the pain management center here may be able to help with that and I will talk with Nakia Barkley NP, about whether Dr. Suresh could assist in this. Gustavo feels that medical marijuana improves his pain and hopefully, he can get his medical marijuana registration sorted out as this will relieve at least one of the stressors in his life. I think this current exacerbation of his symptoms could have something to do with which his parents moving out of [facility], though he does not seem to recognize that. They asked about followup after I move back to [place] and I emphasized that in terms of Neurology, what we are able to offer is support and guidance in terms of ancillary therapies to try to help with his condition such as counseling, biofeedback, etc., but we are not directly able to treat this condition. However, they have appreciated the assistance from Neurology thus far and he could potentially follow up with either Dr. Francisco or Dr. Jamil and I will have to speak with them about that. TIME SPENT: Forty-five minutes was spent in direct [id number] contact with the patient, more than 50% of which was devoted to counseling and education of his condition. [id number]/[facility] #: [id number] ROSANNE
--- NOTE | 2017-09-19 15:51 | PN ---
"Progress Note - Progress Note Date of Service: 09/19/17 Note: Search Terms: jean claude aaron, 1995 Search Date: 09/19/2017 03:51:06 PM The Drug Utilization Report below displays all of the controlled substance prescriptions, if any, that your patient has filled in the last twelve months. The information displayed on this report is compiled from pharmacy submissions to the Department, and accurately reflects the information as submitted by the pharmacies. This report was requested by: Reji Cortes | Reference #: [id number] Others' Prescriptions Patient Name: Jean Claude Aaron Date: 1995 Address: [address] [place] [address] Sex: Male Rx Written Rx Dispensed Drug Quantity Days Supply Prescriber Name 02/09/2017 02/09/2017 hydrocodone-acetaminophen 5-325 mg tablet 20 3 Tacos Mojica MD"
--- NOTE | 2017-09-20 07:50 | DS ---
CC: Dr. Londono* DISCHARGE SUMMARY: DATE OF ADMISSION: 09/16/17 DATE OF DISCHARGE: 09/19/17 HISTORY: This 22-year-old man presented with increased pseudoseizure activity and weakness. The history is detailed in admission note. He has been evaluated by Dr. Gonzalez as well as by neurologist in [place]. He has had video EEG monitoring. He had EEG during his pseudoseizure episodes. All the neurologists' evaluations were consistent with the diagnosis of pseudoseizures. He was tried on various medications for pain and symptom control. Many or most of the medications prescribed, the patient eventually stopped taking as he felt they increased his pseudoseizures. According to the admission note, on arrival at the hospital, the staff has told he had had 23 seizures in a 45- minute period. I note he did have an elevated lactic acid, which would reflect the vigorous muscular activity he was having and would not distinguish between pseudoseizures and seizures. He was seen in consultation by Dr. Jamil, Brina Zacarias, KEHINDE, and Dr. Kenny. He gradually improved and on the last hospital day, he had no pseudoseizures. He was much more animated and engaged and able to carry on an intelligent conversation. I and others have recommended that he try CBD oil, which I think he is willing to try. He says he has hyperelastosis of the joints and has a lot of arthritis and needs the walker at home which is being delivered. He really did not want any addictive medications for pain control. He did say the hydrocodone and acetaminophen helped. I am giving him 12 for the transition. He should mainly be relying on either acetaminophen, CBD oil, or nonpharmacologic means of pain control. FINAL DIAGNOSIS: Pseudoseizures. DISCHARGE MEDICATIONS: 1. Hydrocodone and acetaminophen 5/325 one every 6 hours p.r.n., dispensed 12. 2. Promethazine 25 mg every 8 hours p.r.n. 3. Lurasidone 20 mg daily. 4. Celecoxib 100 mg b.i.d. 5. Cholecalciferol 1000 units daily. The patient may be referred to the externalist clinic and will also follow up with Dr. Londono. [id number]/[facility] #: [id number] [facility]
== END 2017-09-19 17:30 | disposition home or self-care (01) | DRG 756 ==
LOC: ED 23:01 → MED 09-14 10:34 → OBSVTOIN 09-16 15:44
PROVIDERS: ADMIT Internal Medicine; ATTEND Internal Medicine
DX: F44.4 Conversion disorder with motor symptom or deficit (principal); E87.2 Acidosis; E55.9 Vitamin D deficiency, unspecified; M35.7 Hypermobility syndrome; M25.50 Pain in unspecified joint; F32.9 Major depressive disorder, single episode, unspecified; H55.01 Congenital nystagmus; F41.1 Generalized anxiety disorder; J30.81 Allergic rhinitis due to animal (cat) (dog) hair and dander; F12.10 Cannabis abuse, uncomplicated; F39 Unspecified mood [affective] disorder; F45.1 Undifferentiated somatoform disorder; Z88.8 Allergy status to other drugs, medicaments and biological substances; Z79.899 Other long term (current) drug therapy; Z91.040 Latex allergy status; Z91.018 Allergy to other foods; Z82.61 Family history of arthritis
CPT/HCPCS: 36415; 70450; 70553; 72040; 72070; 72100; 80048; 80053; 80307; 80320; 80329; 81003; 82550; 82803; 83605; 84443; 85025; 85610; 85730; 86140; 99282; A9270-GY; A9579; G0378; G0480; G8978-GP-CK; G8979-GP-CI; J2060

== ENCOUNTER 2018-04-12 21:32 | Emergency (ER) | payer OTHER ==
--- NOTE | 2018-04-12 22:22 | ED ---
Neurological HPI - HPI Summary HPI Summary: This patient is a 22 year old M brought in by ambulance to [facility] accompanied by grandmother with a chief complaint of seizure like activity that began prior to arrival. The patient rates the pain 6/10 in severity. Symptoms aggravated by nothing. Symptoms alleviated by nothing. Patient reports swelling in neck. 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 - History of Current Complaint Chief Complaint: EDSeizure Stated Complaint: SEIZURE Time Seen by Provider: 04/12/18 21:58 Hx Obtained From: Patient Onset/Duration: Sudden Onset, Started hours ago, Resolved Timing: Constant Onset Severity: Moderate Current Severity: Moderate Number of Seizures: 1 Pain Intensity: 6 Pain Scale Used: 0-10 Numeric Aggravating: Nothing Alleviating: Nothing Associated Signs and Symptoms: Positive: Neck Pain/Stiffness - Additional Pertinent History Primary Care Physician: OLENA - Allergy/Home Medications Allergies/Adverse Reactions: Allergies Allergy/AdvReac Type Severity Reaction Status Date / Time albuterol Allergy Airway Verified 09/14/17 05:01 Obstruction aripiprazole [From Abilify] Allergy INCREASED Verified 09/07/17 14:09 SEIZURE ACTIVITY latex Allergy Hives Verified 09/14/17 05:01 venlafaxine Allergy INCREASED Verified 09/07/17 14:11 SEIZURE ACTIVITY BASAL Allergy Severe TONGUE Uncoded 09/07/17 14:09 SWELLING, TROUBLE BREATHING DOGS Allergy Severe ITCHY Uncoded 09/07/17 14:09 EYES, SNEEZING CHACHO Allergy Severe TONGUE Uncoded 09/07/17 14:09 SWELLING, DYSPNEA PEACHES Allergy Severe VOMITING, Uncoded 09/07/17 14:09 TONGUE SWELLING, DIFFICULTY BREATHING SALMON Allergy Severe TONGUE Uncoded 09/07/17 14:09 SWELLING WEEDS Allergy Severe DYSPNEA Uncoded 09/07/17 14:09 CATS Allergy ITCHY Uncoded 09/07/17 14:09 EYES, SNEEZING PMH/Surg Hx/FS Hx/Imm Hx Previously Healthy: No Endocrine/Hematology History: Denies: Hx Anticoagulant Therapy, Hx Diabetes, Hx Thyroid Disease Cardiovascular History: Denies: Hx Congestive Heart Failure, Hx Deep Vein Thrombosis, Hx Hypertension , Hx Myocardial Infarction, Hx Pacemaker/ICD Respiratory History: Reports: Hx Asthma - EXERCISE INDUCED Denies: Hx Chronic Obstructive Pulmonary Disease (COPD), Hx Lung Cancer, Hx Pneumonia, Hx Pulmonary Embolism GI History: Reports: Other GI Disorders - appendectomy Denies: Hx Gall Bladder Disease, Hx Gastrointestinal Bleed, Hx Ulcer, Hx Urosepsis History: Denies: Hx Dialysis, Hx Kidney Stones, Hx Renal Disease Musculoskeletal History: Reports: Hx Fibromyalgia, Other Musculoskeletal History - Hypermobility arthralgia Syndrome Sensory History: Reports: Other Sensory Impairments - 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 Denies: Hx Contacts or Glasses, Hx Hearing Aid Opthamlomology History: Reports: Other Sensory Impairments - 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 Denies: Hx Contacts or Glasses Neurological History: 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, pseudoseizures, TEMORS, Other Neuro Impairments/Disorders - patient has multiple conditions Denies: Hx Dementia, Hx Migraine, Hx Transient Ischemic Attacks (TIA) Psychiatric History: Reports: Hx Anxiety, Hx Depression Denies: Hx Eating Disorder, Hx Panic Disorder, Hx Schizophrenia, Hx Bipolar Disorder, Hx of Violent Episodes Against Others - Surgical History Surgery Procedure, Year, and Place: lazy eye surgery, appendix, dental surgery Infectious Disease History: No Infectious Disease History: Denies: Traveled Outside the [place] in Last 30 Days - Family History Known Family History: Positive: Cardiac Disease, Diabetes Negative: Renal Disease - Social History Occupation: Student Lives: With Family Alcohol Use: None Hx Substance Use: No Substance Use Type: Reports: None Substance Use Comment - Amount & Last Used: past hx of Oxycodone abuse- clean now Hx Tobacco Use: Yes Smoking Status (MU): Former Smoker Review of Systems Positive: Other - Positive swelling in neck Neurological: Other - Positive seizure like activity All Other Systems Reviewed And Are Negative: Yes Physical Exam - Summary Physical Exam Summary: VITAL SIGNS: Reviewed. GENERAL: Patient is a well-developed and nourished male who is lying comfortable in the stretcher. Patient is not in any acute respiratory distress. HEAD AND FACE: No signs of trauma. No ecchymosis, hematomas or skull depressions. No sinus tenderness. EYES: PERRLA, EOMI x 2, No injected conjunctiva, no nystagmus. EARS: Hearing grossly intact. Ear canals and tympanic membranes are within normal limits. MOUTH: Oropharynx within normal limits. NECK: Supple, trachea is midline, no adenopathy, no JVD, no carotid bruit, no c- spine tenderness, neck with full ROM. CHEST: Symmetric, no tenderness at palpation LUNGS: Clear to auscultation bilaterally. No wheezing or crackles. CVS: Regular rate and rhythm, S1 and S2 present, no murmurs or gallops appreciated. ABDOMEN: Soft, non-tender. No signs of distention. No rebound no guarding, and no masses palpated. Bowel sounds are normal. EXTREMITIES: FROM in all major joints, no edema, no cyanosis or clubbing. NEURO: Alert and oriented x 3. No acute neurological deficits. Speech is normal and follows commands. SKIN: Dry and warm Triage Information Reviewed: Yes Vital Signs On Initial Exam: Initial Vitals Temp Pulse Resp BP Pulse Ox 98.9 F 84 20 108/67 97 04/12/18 21:35 04/12/18 21:35 04/12/18 21:35 04/12/18 21:35 04/12/18 21:35 Vital Signs Reviewed: Yes Diagnostics - Vital Signs Vital Signs Temp Pulse Resp BP Pulse Ox 04/12/18 21:43 99 96 04/12/18 21:42 96 108/67 95 04/12/18 21:35 98.9 F 84 20 108/67 97 - Laboratory Result Diagrams: 04/12/18 22:55 04/12/18 22:55 Lab Statement: Any lab studies that have been ordered have been reviewed, and results considered in the medical decision making process. Course/Dx - Course Course Of Treatment: This patient is a 22 year old M brought in by ambulance to [facility] accompanied by grandmother with a chief complaint of seizure like activity that began prior to arrival. Physical Exam Findings: Nml. Patient has a history of pseudo seizures and anxiety. Patient has normal CK and normal lactic acid. Most likely patient did have pseudo seizure at this time. Patient was prescribed Ativan for his anxiety and Toradol for his joint pain. Bloodwork obtained. In the ED course the patient was given fluids, toradol, and Ativan. Patient will be discharged with follow up from PCP. The patient is agreeable with this plan. Grandmother is wondering what to do if the symptoms recur once they are home. So I will write a prescription for Antivert to take as needed. - Diagnoses Provider Diagnoses: Convulsion, non-epileptic, Anxiety Discharge - Sign-Out/Discharge Documenting (check all that apply): Patient Departure - Discharge home - Discharge Plan Condition: Stable Disposition: HOME Prescriptions: LORazepam TAB(*) [Ativan 1 MG TAB (*)] 1 mg PO BID PRN #10 tab MDD 2 PRN Reason: Tremors Patient Education Materials: Anxiety (ED) Referrals: Percy Londono MD [Primary Care Provider] - 3 Days Additional Instructions: RETURN TO THE EMERGENCY DEPARTMENT FOR NEW OR WORSENING SYMPTOMS - Billing Disposition and Condition Condition: STABLE Disposition: Home - Attestation Statements Document Initiated by Scribe: Yes Documenting Scribe: Jeanie Loera Provider For Whom Scribe is Documenting (Include Credential): Dr. Deisy Anaya MD Scribe Attestation: Jeanie Gongora, scribed for Dr. Deisy Anaya MD on 04/13/18 at 0611. Scribe Documentation Reviewed: Yes Provider Attestation: The documentation as recorded by the Jeanie luna accurately reflects the service I personally performed and the decisions made by me, Dr. Deisy Anaya MD Status of Scribe Document: Viewed
[2018-04-12] MEDS ORDERED: Ketorolac INJ* 30 MG/ML 1 ML VIAL IV PUSH ONE (22:32)
[2018-04-12] MEDS ORDERED: NS 0.9% 1000 ML* 1,000 ML IV ONE (22:32)
[2018-04-12] MEDS ORDERED: LORazepam INJ* 2 MG/ML 1 ML VIAL IV PUSH ONE (22:32)
[2018-04-12 23:11] LABS: ABS Basophils 0.1 10^3/ul (0-0.2); ABS Eosinophils 0.2 10^3/ul (0-0.6); ABS Lymphocytes 2.5 10^3/ul (1.0-4.8); ABS Monocytes 1.1 10^3/ul (0-0.8); ABS Neutrophils 10.1 10^3/ul (1.5-7.7); ABS Nucleated RBC 0 10^3/ul; Eosinophil % 1.2 %; Hematocrit 41 % (42-52); Hemoglobin 14.1 g/dl (14.0-18.0); Lymphocyte % 17.9 %; Mean Corpuscular HGB Conc 34 g/dl (31-36); Mean Corpuscular Hemoglobin 31 pg (27-31); Mean Corpuscular Volume 92 fL (80-94); Mean Platelet Volume 8.6 fL (7.4-10.4); Nucleated Red Blood Cells % 0; Platelet Count 197 10^3/ul (150-450); Red Blood Count 4.47 10^6/ul (4.00-5.40); Red Cell Distribution Width 13 % (10.5-15); White Blood Count 13.9 10^3/ul (3.5-10.8)
[2018-04-13] MEDS ORDERED: LORazepam INJ* 2 MG/ML 1 ML VIAL IV PUSH ONE (00:25)
[2018-04-13] MEDS ORDERED: LORazepam INJ* 2 MG/ML 1 ML VIAL ONE (00:26)
[2018-04-13 01:29] VITALS: BP 105/64
== END 2018-04-13 01:10 | disposition home or self-care (01) ==
LOC: ED 21:32
DX: R56.9 Unspecified convulsions (principal); F41.9 Anxiety disorder, unspecified; Z91.040 Latex allergy status; Z88.8 Allergy status to other drugs, medicaments and biological substances; Z91.018 Allergy to other foods; Z87.891 Personal history of nicotine dependence
CPT/HCPCS: 36415; 80053; 82550; 83605; 83735; 85025; 96374; 96375; 96376; 99283; J1885; J2060

== ENCOUNTER 2019-01-11 14:42 | Emergency (ER) | payer OTHER ==
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
[2019-01-11 15:53] LABS: ABS Lymphocytes 2.3 10^3/ul (1.0-4.8); ABS Monocytes 0.7 10^3/ul (0-0.8); ABS Neutrophils 6.5 10^3/ul (1.5-7.7); Eosinophil % 0.3 %; Hematocrit 47 % (42-52); Hemoglobin 16.9 g/dL (14.0-18.0); Lymphocyte % 23.8 %; Mean Corpuscular HGB Conc 36 g/dL (31-36); Mean Corpuscular Hemoglobin 33 pg (27-31); Mean Corpuscular Volume 91 fL (80-94); Mean Platelet Volume 8.7 fL (7.4-10.4); Nucleated Red Blood Cells % 0.1; Platelet Count 189 10^3/uL (150-450); Red Blood Count 5.19 10^6 /uL (4.18-5.48); Red Cell Distribution Width 12 % (10-15); White Blood Count 9.5 10^3/uL (3.5-10.8)
--- OUTSIDE RECORDS SUMMARY | 2019-01-11 16:07 | XMS REPORT | Summary of Care ---
:1995 Author Organization [facility] Address [address] [facility] [place] [address] Care Team Providers Name Role Phone Percy Londono MD Primary Care Provider Reason for Visit Reason Comments Back Pain Encounter Details Date Type Department Care Team Description 12/26/2018 Office Visit [facility]iel, Lumbar strain, initial encounter (Primary Dx); [address] [facility] Cervical strain, initial encounter [address] [phone] [place] [address] Allergies Active Allergy Reactions Severity Noted Date Comments Albuterol Sulfate Cardiac Reaction 05/19/2014 Heart racing above normal for albuterol Banana Rash 09/14/2015 Basil Oil Swelling 05/19/2014 Tongue swelling Cat Hair Extract Dermatologic Reaction 05/19/2014 Chlorine Hives 05/19/2014 Reaction occurs when touched and wheezing when breathing. Latex Unknown Reaction 12/31/2016 [place] Flavor Swelling 05/19/2014 Tongue swelling Aspartame - Olanzapine Other 03/06/2017 Decreased b/p Peaches Respiratory Reaction 05/19/2014 Pineapple Swelling 09/14/2015 Mixed Ragweed Respiratory Reaction 10/28/2015 Raspberry Flavor Swelling 09/14/2015 [place] Swelling 10/28/2015 Shellfish Allergy Swelling 03/20/2018 documented as of this encounter (statuses as of 12/26/2018) Medications Medication Sig Dispensed Refills Start Date End Date Status baclofen (LIORESAL) 10 Take 0.5 Tabs by 90 Tab 0 11/13/2017 Active MG Oral Tab mouth TWICE DAILY. Wheat Dextrin Take by mouth 0 Active (BENEFIBER PO) DAILY. ranitidine (ZANTAC) Take 1 Tab by 60 Tab 11 07/03/2018 Active 150 MG Oral Tab mouth TWICE DAILY. acetaminophen Take 1,000 mg by 0 Active (TYLENOL) 500 MG Oral mouth EVERY SIX Tab HOURS NEEDED for Pain. sucralfate (CARAFATE) Take 1 Tab by 120 Tab 0 09/21/2018 Active 1 GM Oral mouth EVERY SIX TabIndications: HOURS. Epigastric pain Cariprazine HCl Take 1 Cap by 30 Cap 0 10/03/2018 Active (VRAYLAR) 1.5 MG Oral mouth DAILY. Cap levalbuterol HFA Take 1-2 Puffs by 1 Inhaler 5 10/26/2018 Active (XOPENEX HFA) 45 inhalation EVERY MCG/ACT Inhalation FOUR HOURS AerosolIndications: NEEDED (SOB). Mild intermittent asthma without complication LORazepam (ATIVAN) 1 Take 0.5 Tabs by 20 Tab 0 11/22/2018 Active MG Oral mouth THREE TIMES TabIndications: DAILY NEEDED Pseudoseizure (muscle spasm). Max Daily Amount: 1.5 mg. 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 Overview: [facility] counseloor Drea Startner loc[employer] ten[employer] psychiatrist is Cassidy Hypermobility arthralgia Nystagmus, hereditary Auditory hallucination Psychogenic nonepileptic seizure Overview: Neurologist [facility] Dr Chicho Reyes or Dr Gonzalez [facility] Dr Coleman: biofeedback therapy documented as of this encounter (statuses as of 12/26/2018) Resolved Problems Problem Noted Date Resolved Date Pseudoseizure 04/17/2018 04/17/2018 Medical marijuana use 04/17/2018 10/26/2018 Asthma 09/28/2017 Anxiety 11/21/2016 documented as of this encounter (statuses as of 12/26/2018) Immunizations Name Administration Dates Next Due DTAP Vaccine 12/31/2002, 04/20/1999, 02/24/1998, 01/29/1998, 1995 HIB 04/20/1999, 02/24/1998, 01/29/1998, 1997 Hepatitis B Vaccine 02/24/1998, 1995, 1997 MENINGOCOCCAL CONJUGATE VACCINE 01/27/2016, 01/24/2014 MMR VACCINE 12/31/2002, 08/19/1998 Pneumococcal Conjugate Vaccine 02/11/2000 Polio - Inactivated Vaccine 12/31/2002, 08/19/1998, 01/29/1998, 1997 ROTAVIRUS LIVE VACCINE 12/31/2002 TDAP Vaccine 03/29/2010 Varicella Vaccine Live 08/19/1998 documented as of this encounter Social History Tobacco Use Types Packs/Day Years Used Date Former Smoker Smokeless Tobacco: Never Used Alcohol Use Drinks/Week oz/Week Comments No 0 Standard drinks or equivalent 0.0 Sex Assigned at Date Recorded Not on file Job Start Date Occupation Industry Not on file Not on file Not on file Travel History Travel Start Travel End No recent travel history available. documented as of this encounter Last Filed Vital Signs Not on filedocumented in this encounter Progress Notes [facility] [place] - 12/26/2018 1:00 PM EDT PATIENT: Gustavo Chavez : 1995 DATE OF SERVICE: 12/26/2018 REFERRING PRACTITIONER: Percy Londono PRIMARY CARE PROVIDER: Percy Londono Chief Complaint Patient presents with Back Pain HISTORY OF PRESENT ILLNESS: Gustavo Chavez is a 23-y.o. male who presents for a follow-up visit. He reports low back pain. Since last office visit symptoms have been controlled. Response to previous treatment session: tolerated well Overall, the symptoms have been controlled. Additional comments: Seems to keep tension down, less frequent psuedoseizures Estimated percentage improved: stable Analog Pain Scale result: 07/15 NDI score: Oswestry score: Home exercise fulfillment: compliance with the home exercises was reported Current Outpatient Medications Medication Sig acetaminophen (TYLENOL) 500 MG Oral Tab Take 1,000 mg by mouth EVERY SIX HOURS NEEDED for Pain. baclofen (LIORESAL) 10 MG Oral Tab Take 0.5 Tabs by mouth TWICE DAILY. Cariprazine HCl (VRAYLAR) 1.5 MG Oral Cap Take 1 Cap by mouth DAILY. levalbuterol HFA (XOPENEX HFA) 45 MCG/ACT Inhalation Aerosol Take 1-2 Puffs by inhalation EVERY FOUR HOURS NEEDED (SOB). LORazepam (ATIVAN) 1 MG Oral Tab Take 0.5 Tabs by mouth THREE TIMES DAILY NEEDED (muscle spasm). Max Daily Amount: 1.5 mg. ranitidine (ZANTAC) 150 MG Oral Tab Take 1 Tab by mouth TWICE DAILY. sucralfate (CARAFATE) 1 GM Oral Tab Take 1 Tab by mouth EVERY SIX HOURS. Wheat Dextrin (BENEFIBER PO) Take by mouth DAILY. No current facility-administered medications for this visit. Allergies Allergen Reactions Albuterol Sulfate Cardiac Reaction Heart racing above normal for albuterol Banana Rash Basil Oil Swelling Tongue swelling Cat Hair Extract Dermatologic Reaction Chlorine Hives Reaction occurs when touched and wheezing when breathing. Latex Unknown Reaction [place] Flavor Swelling Tongue swelling Olanzapine [Aspartame - Olanzapine] Other Decreased b/p Peaches Respiratory Reaction Pineapple Swelling Ragweed Extract [Mixed Ragweed] Respiratory Reaction Raspberry Flavor Swelling [place] Swelling Shellfish Allergy Swelling PHYSICAL EXAMINATION: There were no vitals filed for this visit. There is no height or weight on file to calculate BMI. Regions of muscle spasm: bilateral thoracolumbar paraspinal Regions of trigger points: none Regions of tenderness: Lumbar paraspinal musculature , thoracic paraspinal musculature Intersegmental Motion Evaluation Spinal joint dysfunction/chiropractic subluxation Acute: Thoracic: R-T10/11, L-T10/11, R-T11/12, L-T11/12 Lumbar: R-L4/5, L-L4/5, R-L5/S1, L-L5/S1 Posture Seated slumped posture is noted and a faulty sit to stand transition pattern is evidenced. Orthopedics Tests Romo's test was + for pain in low back pain . Thoracic spine extension reproduced the patient's complaints of lumbosacral junction pain. IMPRESSION: ICD-9-CM ICD-10-CM 1. Lumbar strain, initial encounter 847.2 S39.012A 2. Cervical strain, initial encounter 847.0 S16.1XXA Response to care: Progressing as anticipated Plan: History, Exam, Report of Findings, Manipulate areas of inter-segmental dysfunction as noted inthe section titled intersegmental motion evaluation above , instruct in exercisesfor the purpose of neuromuscular reeducation to improve strength and range of motion. . Manipulation: Spinal level(s): Flexion distraction technique full spine Follow up: Schedule follow-up here as needed if symptoms worsen. 3 weeks Author: [facility] [place], 12/26/2018, 13:19 documented in this encounter Plan of Treatment Date Type Specialty Care Team Description 01/16/2019 Office Visit Neurology [facility] [address] [place] [address] [phone] 02/04/2019 Office Visit Internal Medicine Percy Londono MD [address] [place] [address] [phone] Health Maintenance Due Date Last Done Comments PNEUMOCOCCAL 0-64 YRS (1 of 1 - PPSV23) 08/16/2003 02/11/2000 HPV IMMUNIZATION SERIES (1 - Male 3-dose 2012 series) INFLUENZA VACCINE (#1) 2019 03/05/2013 DEPRESSION SCREENING 09/22/2019 09/21/2018, 09/21/2018 MENINGOCOCCAL VACCINE IMM Completed 01/27/2016, 01/24/2014 documented as of this encounter Goals Goal Patient Goal Associated Recent Patient-Stated? Author Type Problems Progress Depression Depression 15 No Spring screen (PHQ-9) (09/21/2018 Percy Acosta, total score < 5 8:32 AM EDT) Note: This is an individualized treatment (depression) goal for Gustavo Chavez: Displayed above is your goal for a depression screening (PHQ-9) score that would indicate good control of your depression. Keep immunizations current Lifestyle Percy Sanford MD Note: This is an individualized lifestyle goal for Gustavo Chavez: Please be sure to keep up-to-date on recommended immunizations. For example, this would include a yearly influenza vaccine. Immunization status can be seen by looking at the Health Maintenance sections of your Zackary, Allison of Care, and any After Visit Summaries. Keep a regular sleep schedule Lifestyle Percy Sanford MD Note: This is an individualized lifestyle goal for Gustavo Chavez: Please maintain a regular sleep schedule. This may help with some symptoms of depression. Take all prescribed medications as Self-management Percy Sanford MD directed Note: This is an individualized self-management goal for Gustavo Chavez: Please take all prescribed medications as directed. 1. Do not skip doses. If you cannot afford your medications, talk with your doctor. 2. Use a pill reminder system such as a pill box if needed. Your pharmacist can help you with this. 3. Contact your Pharmacy 5 days before your medication runs out. If you cannot take your medications for any reasons, talk with your doctor. 4. Please bring all of your medication bottles and inhalers (or a list of all your medications/inhalers) with you to every visit. Potential barriers to meeting all of your care plan goals will continue to be addressed on an ongoing basis. documented as of this encounter Results Not on filedocumented in this encounter Visit Diagnoses Diagnosis Lumbar strain, initial encounter - Primary Cervical strain, initial encounter documented in this encounter Guarantor Name Account Type Relation to Date of Phone Billing Patient Address Gustavo hCavez Personal/Family 1995 [address] (Home) [place], [place] [phone] [id number] (Work) documented as of this encounter
[2019-01-11 16:10] LABS: ALT 19 U/L (7-52); AST 17 U/L (13-39); Albumin 4.8 g/dL (3.2-5.2); Albumin/Globulin Ratio 1.7 (1-3); Alkaline Phosphatase 71 U/L (34-104); Anion Gap 9 mmol/L (2-11); BUN/Creatinine Ratio 13.8 (8-20); Blood Urea Nitrogen 17 mg/dL (6-24); CO2 Carbon Dioxide 29 mmol/L (22-32); Calcium 10.3 mg/dL (8.6-10.3); Chloride 103 mmol/L (101-111); EGFR African American 89.9 (>60); EGFR Non-African American 74.3 (>60); Globulin 2.9 g/dL (2-4); Glucose 99 mg/dL (70-100); Potassium 3.4 mmol/L (3.5-5.0); Sodium 141 mmol/L (135-145); Total Protein 7.7 g/dL (6.4-8.9)
[2019-01-11 16:25] LABS: Alcohol < 10 mg/dL (<10)
[2019-01-11 17:28] VITALS: BP 135/74
== END 2019-01-11 17:00 | disposition home or self-care (01) ==
LOC: ED 14:42
DX: F44.5 Conversion disorder with seizures or convulsions (principal); J45.909 Unspecified asthma, uncomplicated; F41.9 Anxiety disorder, unspecified; F32.9 Major depressive disorder, single episode, unspecified; Z87.891 Personal history of nicotine dependence; Z79.899 Other long term (current) drug therapy; Z88.8 Allergy status to other drugs, medicaments and biological substances; Z91.040 Latex allergy status
CPT/HCPCS: 36415; 80053; 80320; 85025; 99284; G0480

== ENCOUNTER 2021-02-28 17:10 | Inpatient (IN) ==
[2021-02-28 17:46] LABS: ABS Basophils 0.1 10^3/ul (0-0.2); ABS Eosinophils 0.1 10^3/ul (0-0.6); ABS Lymphocytes 3.2 10^3/ul (1.0-4.8); ABS Monocytes 0.9 10^3/ul (0-0.8); ABS Neutrophils 6.1 10^3/ul (1.5-7.7); Eosinophil % 1.4 %; Hematocrit 44 % (42-52); Hemoglobin 15.7 g/dL (14.0-18.0); Lymphocyte % 30.5 %; Mean Corpuscular HGB Conc 36 g/dL (31-36); Mean Corpuscular Hemoglobin 32 pg (27-31); Mean Corpuscular Volume 90 fL (80-94); Mean Platelet Volume 8.7 fL (7.4-10.4); Nucleated Red Blood Cells % 0.1; Platelet Count 242 10^3/uL (150-450); Red Blood Count 4.88 10^6 /uL (4.18-5.48); Red Cell Distribution Width 13 % (10-15); White Blood Count 10.5 10^3/uL (3.5-10.8)
[2021-02-28 18:03] LABS: ALT 17 U/L (7-52); Albumin 4.4 g/dL (3.2-5.2); Albumin/Globulin Ratio 1.6 (1-3); Alkaline Phosphatase 94 U/L (35-149); Blood Urea Nitrogen 18 mg/dL (6-24); CO2 Carbon Dioxide 27 mmol/L (22-32); Calcium 9.5 mg/dL (8.6-10.3); Chloride 104 mmol/L (101-111); Globulin 2.8 g/dL (2-4); Glucose 98 mg/dL (70-100); Sodium 137 mmol/L (135-145); Total Protein 7.2 g/dL (6.4-8.9)
[2021-02-28 18:29] LABS: Acetaminophen < 15 mcg/mL; Alcohol, S < 13 mg/dL (<13); Salicylate < 2.50 mg/dL (<30)
[2021-02-28 18:42] LABS: AST 23 U/L (13-39); Anion Gap 6 mmol/L (2-11)
[2021-02-28 19:40] LABS: Urine Appearance Clear; Urine Bilirubin Negative (Negative); Urine Blood Negative (Negative); Urine Color Yellow; Urine Glucose Negative (Negative); Urine Ketones Negative (Negative); Urine Nitrite Negative (Negative); Urine Protein Negative (Negative); Urine Specific Gravity 1.028 (1.002-1.030); Urine Urobilinogen Negative (Negative)
[2021-02-28 20:24] LABS: Urine Benzodiazepine Screen None Detected (None Detect); Urine Cannabinoids Screen Presumptive Positive (None Detect); Urine Opiates Screen None Detected (None Detect)
[2021-02-28 22:56] LABS: Rapid COVID-19 Molecular Undetected (Undetected)
[2021-02-28] MEDS ORDERED: Al Hydrox/Mg Hydrox/Simet LIQ 30 ML UDC PO PRN (22:57)
[2021-03-01 08:17] LABS: HDL Cholesterol 27.2 mg/dL
[2021-03-01] MEDS: Vitamin THERAPEUTIC TAB PO SCH (08:42)
[2021-03-01] MEDS: CYANOCOBALAMIN SL SCH (08:50)
[2021-03-02] MEDS: Vitamin THERAPEUTIC TAB PO SCH (07:35)
[2021-03-02] MEDS: CYANOCOBALAMIN SL SCH (09:35)
[2021-03-03] MEDS: Vitamin THERAPEUTIC TAB PO SCH (08:35)
[2021-03-03] MEDS: CYANOCOBALAMIN SL SCH (08:37)
[2021-03-04] MEDS: CYANOCOBALAMIN SL SCH (09:01)
[2021-03-04] MEDS: Vitamin THERAPEUTIC TAB PO SCH (09:01)
[2021-03-05] MEDS: Vitamin THERAPEUTIC TAB PO SCH (09:40)
[2021-03-05] MEDS: CYANOCOBALAMIN SL SCH (09:41)
[2021-03-06] MEDS: Vitamin THERAPEUTIC TAB PO SCH (08:20)
[2021-03-06] MEDS: CYANOCOBALAMIN SL SCH (08:20)
[2021-03-07] MEDS: CYANOCOBALAMIN SL SCH (08:53)
[2021-03-07] MEDS: Vitamin THERAPEUTIC TAB PO SCH (08:55)
[2021-03-08] MEDS: Vitamin THERAPEUTIC TAB PO SCH (08:56)
[2021-03-08] MEDS: CYANOCOBALAMIN SL SCH (09:08)
[2021-03-09] MEDS: Vitamin THERAPEUTIC TAB PO SCH (07:43)
[2021-03-09] MEDS: CYANOCOBALAMIN SL SCH (07:44)
[2021-03-09 22:04] VITALS: BP 130/79
[2021-03-10] MEDS: Vitamin THERAPEUTIC TAB PO SCH (07:51)
[2021-03-10] MEDS: CYANOCOBALAMIN SL SCH (07:51)
== END 2021-03-10 11:00 | disposition home or self-care (01) | DRG 751 ==
LOC: ED 17:10 → BSU 22:42
PROVIDERS: ADMIT Psychiatry & Neurology Psychiatry; ATTEND Psychiatry & Neurology Psychiatry

== ENCOUNTER 2021-08-25 14:41 | Inpatient (IN) ==
[2021-08-25 16:17] LABS: ABS Basophils 0.1 10^3/ul (0-0.2); ABS Eosinophils 0.2 10^3/ul (0-0.6); ABS Lymphocytes 3.2 10^3/ul (1.0-4.8); ABS Monocytes 0.9 10^3/ul (0-0.8); ABS Neutrophils 6.1 10^3/ul (1.5-7.7); Eosinophil % 1.9 %; Hematocrit 43 % (42-52); Lymphocyte % 30.2 %; Mean Corpuscular HGB Conc 35 g/dL (31-36); Mean Corpuscular Hemoglobin 32 pg (27-31); Mean Corpuscular Volume 90 fL (80-94); Mean Platelet Volume 8.7 fL (7.4-10.4); Platelet Count 236 10^3/uL (150-450); Red Blood Count 4.74 10^6 /uL (4.18-5.48); Red Cell Distribution Width 14 % (10-15); White Blood Count 10.5 10^3/uL (3.5-10.8)
[2021-08-25 17:27] LABS: ALT 20 U/L (7-52); AST 20 U/L (13-39); Acetaminophen < 15 mcg/mL; Albumin 4.1 g/dL (3.2-5.2); Albumin/Globulin Ratio 1.6 (1-3); Alcohol, S < 13 mg/dL (<13); Alkaline Phosphatase 90 U/L (35-149); Anion Gap 8 mmol/L (2-11); Blood Urea Nitrogen 16 mg/dL (6-24); CO2 Carbon Dioxide 26 mmol/L (22-32); Calcium 9.3 mg/dL (8.6-10.3); Chloride 104 mmol/L (101-111); Globulin 2.6 g/dL (2-4); Glucose 75 mg/dL (70-100); Potassium 4.1 mmol/L (3.5-5.0); Salicylate < 2.50 mg/dL (<30); Sodium 138 mmol/L (135-145); Total Protein 6.7 g/dL (6.4-8.9); eGFR CKD-EPI 89.3 (>60)
[2021-08-25 17:36] LABS: TSH Ultra Thyroid Stim Horm 1.25 mcIU/mL (0.34-5.60)
[2021-08-25 18:18] LABS: Urine Appearance Clear; Urine Bilirubin Negative (Negative); Urine Blood Negative (Negative); Urine Color Yellow; Urine Glucose Negative (Negative); Urine Ketones Negative (Negative); Urine Nitrite Negative (Negative); Urine Protein Negative (Negative); Urine Specific Gravity 1.027 (1.002-1.030); Urine Urobilinogen Negative (Negative)
[2021-08-25 18:54] LABS: Urine Benzodiazepine Screen None Detected (None Detect); Urine Cannabinoids Screen Presumptive Positive (None Detect); Urine Opiates Screen None Detected (None Detect)
[2021-08-26] MEDS: Multivitamins/Minerals TAB PO SCH (08:43)
[2021-08-26] MEDS ORDERED: Levalbuterol HFA INHALER MDI INH PRN (09:47)
[2021-08-26] MEDS ORDERED: OLANzapine 5 mg TAB*ODT PO PRN (11:29)
[2021-08-26] MEDS: Al Hydrox/Mg Hydrox/Simet LIQ 30 ML UDC PO PRN (18:54)
[2021-08-27] MEDS: Fluticasone NASAL SPRAY 50MCG 16 gm SPRAY BTL INTRANASAL SCH (08:08)
[2021-08-27] MEDS: Multivitamins/Minerals TAB PO SCH (08:09)
[2021-08-27] MEDS: Al Hydrox/Mg Hydrox/Simet LIQ 30 ML UDC PO PRN (17:25)
[2021-08-28] MEDS: Multivitamins/Minerals TAB PO SCH (07:52)
[2021-08-28] MEDS: NF: Cyanocobalamin 2,500 mcg TAB SL SCH (08:01)
[2021-08-28] MEDS: Fluticasone NASAL SPRAY 50MCG 16 gm SPRAY BTL INTRANASAL SCH (08:02)
[2021-08-29] MEDS: Multivitamins/Minerals TAB PO SCH (07:22)
[2021-08-29] MEDS: NF: Cyanocobalamin 2,500 mcg TAB SL SCH (07:31)
[2021-08-29] MEDS: Fluticasone NASAL SPRAY 50MCG 16 gm SPRAY BTL INTRANASAL SCH (07:32)
[2021-08-29] MEDS: Al Hydrox/Mg Hydrox/Simet LIQ 30 ML UDC PO PRN ×2 (12:28→17:40)
[2021-08-30 07:41] VITALS: BP 140/86
[2021-08-30] MEDS: Multivitamins/Minerals TAB PO SCH (07:43)
[2021-08-30] MEDS: NF: Cyanocobalamin 2,500 mcg TAB SL SCH (08:20)
[2021-08-30] MEDS: Fluticasone NASAL SPRAY 50MCG 16 gm SPRAY BTL INTRANASAL SCH (09:47)
== END 2021-08-30 17:50 | disposition home or self-care (01) | DRG 883 ==
LOC: ED 14:41 → EDHOLD 20:30 → BSU 23:46
PROVIDERS: ADMIT Psychiatry & Neurology Psychiatry; ATTEND Student in an Organized Health Care Education/Training Program